=== PATIENT | male | born 2000 | race Caucasian/White ===

== ENCOUNTER 2024-07-11 12:01 | Emergency (ER) | payer OTHER, SELFPAY ==
[2024-07-11 12:15] VITALS: BP 139/83; PULSE 97; TEMP 36.8; O2SAT 98; BMI 35.6
--- NOTE | 2024-07-11 12:30 | ED_ITS ---
HPI HPI - General Adult General Chief complaint: Abdominal Pain Stated complaint: VOMITING, WEAKNESS Time Seen by Provider: 07/11/24 12:27 Source: patient Mode of arrival: walk-in History of Present Illness HPI narrative: 24-year-old male presents to the emergency department for nausea and vomiting and diarrhea. It began at 8:00 this morning. No known ill contacts. He has not had a fever. He is not complaining to me of abdominal pain. He believes he saw some blood in his emesis after he had vomited several times. Related Data Previous Rx's ?Medication ?Instructions ?Recorded ondansetron 4 mg disintegrating 4 mg PO Q6H PRN nausea and 07/11/24 tablet vomiting #20 tabs Allergies Allergy/AdvReac Type Severity Reaction Status Date / Time No Known Drug Allergies Allergy Verified 07/11/24 12:15 Opioid HPI Opioid Management Most Recent Opioid Data: No Data to Display Review of Systems ROS Narrative A ten point review of systems is negative except as noted above. PFSH PFSH Social History Little interest or pleasure in doing things: not at all Feeling down, depressed, or hopeless: not at all Exam Narrative Exam Narrative: Nurses note and vital signs reviewed and patient is not hypoxic. General: The patient appears in no apparent distress. Skin: Warm, dry, no pallor noted. There is no rash noted. Head: Normocephalic, atraumatic Eye: Normal conjunctiva, no drainage Ears, Nose, Mouth, and Throat: oral mucosa is moist. Nares patent. Cardiovascular: Regular Rate and Rhythm Respiratory: Patient is in no distress, no accessory muscle use, lungs are clear to auscultation, no wheezing, rales or rhonchi Back: non-tender GI: no tenderness to palpation, no masses appreciated. No rebound, guarding, or rigidity noted. Musculoskeletal: The patient has no evidence of calf tenderness, no pitting edema, symmetrical pulses noted bilaterally Neurological: A&O, normal speech Psychiatric: Cooperative Constitutional Vital Signs, click to edit/add: Last Vital Signs Temp 98.2 F 07/11/24 12:15 Pulse 86 07/11/24 13:55 Resp 20 07/11/24 13:55 BP 132/78 07/11/24 13:55 Pulse Ox 99 07/11/24 13:55 O2 Del Method Room Air 07/11/24 13:55 Course Vital Signs Vital signs: Vital Signs Temperature 98.2 F 07/11/24 12:15 Pulse Rate 97 H 07/11/24 12:15 Respiratory Rate 20 07/11/24 12:15 Blood Pressure 139/83 07/11/24 12:15 Pulse Oximetry 98 07/11/24 12:15 Temperature 98.2 F 07/11/24 12:15 Pulse Rate 86 07/11/24 13:55 Respiratory Rate 20 07/11/24 13:55 Blood Pressure 132/78 07/11/24 13:55 Pulse Oximetry 99 07/11/24 13:55 Oxygen Delivery Method Room Air 07/11/24 13:55 Medical Decision Making MDM Narrative Medical decision making narrative: Blood work is nonspecific. He is feeling improved after IV fluids and IV Zofran and he is discharged home. Treatment diagnosis and follow-up were discussed with the patient. Differential Diagnosis Differential Diagnosis: Gastroenteritis, dehydration, food poisoning Lab Data Lab results reviewed: Yes I reviewed the patient's lab results Labs: Lab Results 07/11/24 Range/Units 12:47 WBC 8.8 (4.0-11.0) 10^3/uL RBC 5.82 (4.70-6.10) 10^6/uL Hgb 16.6 (14.0-18.0) g/dL Hct 48.9 (42.0-54.0) % MCV 84.0 (80.0-94.0) fL MCH 28.5 (25.9-34.0) pg MCHC 33.9 (29.9-35.2) g/dL RDW 12.8 (11.0-15.0) % Plt Count 274 (150-450) 10^3/uL MPV 10.4 (9.5-13.5) fL Neut % (Auto) 71.6 (43.0-75.0) % Lymph % (Auto) 20.3 L (20.5-60.0) % Craven % (Auto) 6.9 (1.7-12.0) % Eos % (Auto) 0.2 L (0.9-7.0) % Baso % (Auto) 0.5 (0.2-2.0) % Neut # (Auto) 6.3 (1.4-6.5) 10^3/uL Lymph # (Auto) 1.8 (1.2-3.8) 10^3/uL Craven # (Auto) 0.6 (0.3-0.8) 10^3/uL Eos # (Auto) 0.0 (0.0-0.7) 10^3/uL Baso # (Auto) 0.0 (0.0-0.1) 10^3/uL Abs Immat Gran (auto) 0.04 H (0.00-0.03) 10^3/uL Imm/Tot Granulo (auto) 0.5 (0.0-0.5) % Sodium 140 (136-145) mmol/L Potassium 4.5 (3.5-5.1) mmol/L Chloride 105 (98-107) mmol/L Carbon Dioxide 28.2 (21.0-32.0) mmol/L Anion Gap 11.3 BUN 10.0 (7.0-18.0) mg/dL Creatinine 1.04 (0.70-1.30) mg/dL Est GFR ( Amer) >60 (>=60 mL/min/1.73m^2) Est GFR (Non-Af Amer) >60 (>=60 mL/min/1.73m^2) BUN/Creatinine Ratio 9.6 Glucose 104 (74-106) mg/dL Calcium 9.2 (8.5-10.1) mg/dL Discharge Plan Discharge Chief Complaint: Abdominal Pain Clinical Impression: Nausea & vomiting Patient Disposition: Home, Self-Care Time of Disposition Decision: 14:52 Condition: Good Mode of Transportation: Private Vehicle Prescriptions / Home Meds: New ondansetron 4 mg tablet,disintegrating 4 mg PO Q6H PRN (Reason: nausea and vomiting) Qty: 20 0RF Print Language: Turkmen Instructions: Acute Nausea and Vomiting (ED) Referrals: MEMO STOVALL [Primary Care Provider] - 1 week
[2024-07-11] MEDS: ONDANSETRON PF 4 MG/2 ML VIAL IV (12:54)
[2024-07-11] MEDS: 0.9 % SODIUM CHLORIDE 1,000 ML 1000 ML IV (12:54)
[2024-07-11 12:57] LABS: Basophils Percent Auto 0.5 % (0.2-2.0); Eosinophils Percent Auto 0.2 % (0.9-7.0); Hematocrit 48.9 % (42.0-54.0); Hemoglobin 16.6 g/dL (14.0-18.0); Immature Granulocytes Abs Auto 0.04 10^3/uL (0.00-0.03); Immature Granulocytes Pct Auto 0.5 % (0.0-0.5); Lymphocytes Absolute Auto 1.8 10^3/uL (1.2-3.8); Lymphocytes Percent Auto 20.3 % (20.5-60.0); Mean Corpuscular HGB Conc 33.9 g/dL (29.9-35.2); Mean Corpuscular Hemoglobin 28.5 pg (25.9-34.0); Mean Platelet Volume 10.4 fL (9.5-13.5); Monocytes Absolute Auto 0.6 10^3/uL (0.3-0.8); Monocytes Percent Auto 6.9 % (1.7-12.0); Neutrophils Absolute Auto 6.3 10^3/uL (1.4-6.5); Neutrophils Percent Auto 71.6 % (43.0-75.0); Platelet Count 274 10^3/uL (150-450); Red Blood Count 5.82 10^6/uL (4.70-6.10); Red Cell Distribution Width 12.8 % (11.0-15.0); White Blood Count 8.8 10^3/uL (4.0-11.0)
[2024-07-11 13:13] LABS: Anion Gap 11.3; BUN Creatinine Ratio 9.6; Calcium 9.2 mg/dL (8.5-10.1); Carbon Dioxide 28.2 mmol/L (21.0-32.0); Chloride 105 mmol/L (98-107); Estimated GFR (African America >60 (>=60 mL/min/1.73m^2); Estimated GFR (Non-African Ame >60 (>=60 mL/min/1.73m^2); Glucose 104 mg/dL (74-106); Potassium 4.5 mmol/L (3.5-5.1); Sodium 140 mmol/L (136-145)
[2024-07-11 13:55] VITALS: BP 132/78; PULSE 86; O2SAT 99
== END 2024-07-11 15:02 | disposition home or self-care (01) ==
PROVIDERS: Emergency Provider Emergency Medicine; PCP Nurse Practitioner Family
DX: R11.2 Nausea with vomiting, unspecified (principal)
CPT/HCPCS: 36415; 80048; 85025; 96361; 96374; 99284; J2405

== ENCOUNTER 2025-01-30 16:11 | Outpatient (OUT) | payer OTHER, SELFPAY ==
[2025-01-30 16:34] LABS: Hematocrit 44.6 % (42.0-54.0); Hemoglobin 15.6 g/dL (14.0-18.0); Immature Granulocytes Abs Auto 0.01 10^3/uL (0.00-0.03); Immature Granulocytes Pct Auto 0.1 % (0.0-0.5); Lymphocytes Absolute Auto 2.9 10^3/uL (1.2-3.8); Mean Corpuscular HGB Conc 35.0 g/dL (29.9-35.2); Mean Corpuscular Hemoglobin 29.4 pg (25.9-34.0); Mean Corpuscular Volume 84.0 fL (80.0-94.0); Platelet Count 251 10^3/uL (150-450); Red Blood Count 5.31 10^6/uL (4.70-6.10); White Blood Count 8.1 10^3/uL (4.0-11.0)
[2025-01-30 17:03] LABS: Alanine Aminotransferase 90 U/L (16-63); Albumin Globulin Ratio 1.2; Albumin Level 4.4 g/dL (3.4-5.0); Alkaline Phosphatase 73 U/L (46-116); Anion Gap 8.8; Aspartate Amino Transferase 31 U/L (15-37); Blood Urea Nitrogen 12.0 mg/dL (7.0-18.0); Calcium 9.4 mg/dL (8.5-10.1); Carbon Dioxide 31.4 mmol/L (21.0-32.0); Chloride 104 mmol/L (98-107); Cholesterol 181 mg/dL (<=200); Estimated GFR (African America >60 (>=60 mL/min/1.73m^2); Estimated GFR (Non-African Ame >60 (>=60 mL/min/1.73m^2); Free T3 3.95 pg/mL (2.18-3.98); Globulin 3.6 g/dL; Glucose 92 mg/dL (74-106); HDL Cholesterol 44 mg/dL (40-60); Potassium 4.2 mmol/L (3.5-5.1); Sodium 140 mmol/L (136-145); Thyroid Stimulating Hormone 1.760 uIU/mL (0.358-3.740); Total Protein 8.0 g/dL (6.4-8.2); Triglycerides 147 mg/dL (<=150); Uric Acid 6.0 mg/dL (3.5-7.2); VLDL CHOLESTEROL 29.4 mg/dL
== END 2025-01-30 16:12 | disposition home or self-care (01) ==
PROVIDERS: PCP Nurse Practitioner Family; Visit Provider Nurse Practitioner Family
DX: Z00.00 Encounter for general adult medical examination without abnormal findings (principal)
CPT/HCPCS: 36415; 80053; 80061; 83036; 83525; 84436; 84443; 84481; 84550; 85025

== ENCOUNTER 2025-02-01 15:46 | Outpatient (OUT) | payer OTHER, SELFPAY ==
--- OUTSIDE RECORDS SUMMARY | 2023-12-23 07:48 | XMS_ITS ---
Author Organization The [facility] in [place] Address [address] [place] [address] Care Team Providers Care Product Development Consultant Name Role Phone Sylvia Guadarrama Primary Care Provider SYLVIA GUADARRAMA Unavailable [phone] REASON FOR VISIT skin discoloration Encounters Encounter Location Date Provider Diagnosis [facility] [address] [place] [address] 12/23/2023 SYLVIA GUADARRAMA Plan Of Treatment No Information Progress Notes * Omar BARROSO ADOB:2000 (23 yo M)Acc No.[id number]:12/23/2023 Patient: Rosario Omar NASH :2000 A ge:23 Y S ex:Male Address:[address] [place] [phone] * true * Date: Generated for Printi ng/Fahawag/eTransmitting on: 0 02/01/2025 03:48 PM EDT
--- OUTSIDE RECORDS SUMMARY | 2025-01-30 11:30 | XMS_ITS ---
Author Organization The [facility] in [place] Address [address] [place] [address] Care Team Providers Care Railroad Track Inspector Name Role Phone Sylvia Guadarrama Primary Care Provider [phone] Allergies No Known Allergies REASON FOR VISIT Fatigue, Body Aches, Low Appetite Social History Tobacco Use: Social History Observation Description Date Details (start date - stop date) Never Smoker NA - NA Tobacco Use/Smoking Question Answer Notes Patient is a nonsmoker AUDIT-C (Standard) Question Answer Notes Did you have a drink containing alcohol in the p ast year? No Points 0 Interpretation Negative Problems Problem Type SNOMED Code ICD Code Onset Dates Problem Status W/U Status Risk Notes Problem Mild anxiety (08035516) Mild anxiety (F41.9) Active confirmed Vital Signs Blood pressure systolic 182 mm Hg 01/31/20 25 Blood pressure diastolic 108 mm Hg 025 Heart Rate 82 /min 01/30/2025 Height 75 in 01/30/2025 Weight 290 lbs 01/30/2025 BMI 36.24 kg/m2 01/30/2025 Oximetry 98 % 01/30/2025 160/98 BP recheck Procedures Procedure Date Ordered Date Performed Result Body Sit e Holter Monitor - 3 days up to 14 days 01/30/2025 N/A Encounters Encounter Location Date Provider Diagnosis [facility] [address] [place] [address] 01/30/2025 Sylvia Guadarrama Fatigue R53.83 ; Palpitations R00.2 ; Mild anxiety F41.9 and Wellness examination Z00.00 Assessments Encounter Date Diagnosis (ICD Code) Assessment Notes Treatment Notes Treatment Clinical Notes Section Notes 01/30/2025 Fatigue (ICD-10 - R53.83) check labs rest , push fluids covid test neg 01/30/2025 Palpitations (ICD-10 - R00.2) 01/30/2025 Mild anxiety (ICD-10 - F41.9) scored 5 on RAQUEL testing 01/30/2025 Wellness examination (ICD-10 - Z00.00) Plan Of Treatment Treatment Notes Assessment Notes Fatigue check labs rest , push fluids covid test neg Mild anxiety scored 5 on RAQUEL test ing Pending Test Test Name Order Date HEMOGLOBIN A1C (GLYCO) 01/30/2025 INSULIN, TOTAL 01/30/2025 LIPID PANEL (CHOL/TRIG/HDL/LDL) 01/31/20 25 URIC ACID 01/30/2025 THYROID PANEL (T4/TSH/FREE T3) Holter Monitor - 3 days up to 14 days PSA, SCREENING 01/30/2025 CMP (COMP MET CHARLES) w/eGFR CKD-EPI 2024 CBC WITH DIFF 01/30/2025 Next Appt Details Follow Up: prn, Reason: Progress Notes * Omar PEDROZA ADOB:2000 (25 yo M)Acc No.[id number]:01/30/2025 Progress Note Patient: Omar GRANDA Provider: Zulema Guadarrama ([facility]), INSPECTION MANAGER :2000 A ge:25 Y S ex:Male Date:01/30/2025 Address:[address] [place], [place] [id number] Check In:03:26 PM ESTCheck O ut:03:59 PM EST Subjective: * Chief Complaints: * 1 . Fatigue, Body Aches, Low Appetite. * HPI: G eneral: for a week tired, sleeping more, body aches some cramps and diarrhea feels like heart beats real fast and stops, cp for few seconds, has to catch breath, than gets better little lighteaded once 2-3 Stanleys of water a day 1 cup caffeine daily, a soda. * ROS: G eneral/Constitutional: Fatigue a dmits and sleeping more. A nxiety d oesnt feel anxious, RAQUEL screening says mild anxiety. D izziness o ne episode. F eeling Poorly?admits. F eeling Tired a dmits. F ever d enies. H eadache d enies. W eight loss d enies. O phthalmologic: Discharge d enies. E ye Pain d enies. I tching and redness d enies. E NT: Nasal discharge d enies. N yaw congestion d enies.?Sore throat d enies. C ardiovascular: Chest tightness/ heavy pressure d enies. R apid heart rate a dmits and irregular, palpitations at times. S welling of extremities d enies. C hest pain l eft chest and arm couple seconds when rhythm off. R espiratory: Productive cough d enies. C hest pain d enies. C ough d enies. S hortness of breath d enies. W heezing d enies. ? G astrointestinal: Abdominal pain d enies. C onstipation d enies. D ecreased appetite d enies. D iarrhea a dmits , cramping before. N ausea d enies. V omiting d enies. G enitourinary: Urinary incontinence d enies. P ainful urination d enies. M usculoskeletal: Back pain d enies. N luis a pain d enies. M uscle aches d enies. S kin: Rash d enies. S kin lesion(s) d enies. ? s ome numbness and tingling in hands , feet at times. * Active Problem List H61.23 Impacted cerumen, bi lateral Modified On:10/17/2022/U Status:confirmed R06.02 Shortness of breath Modified On:10/17/2022/U Status:confirmed Z20.828 Contact with and (liz spected) exposure to other viral communicable diseases Modified On:10/17/2022/U Status:confirmed R53.83 Fatigue Modified On:10/17/2022/U Status:confirmed K21.9 GERD (gastroesophage al reflux disease) Modified On:10/17/2022/U Status:confirmed M54.9 Back pain Modified On:10/17/2022/U Status:confirmed R19.7 Diarrhea Modified On:10/17/2022U Status:confirmed K52.9 Gastroenteritis Modified On:10/17/2022 Status:confirmed K63.3 Sigmoid colon ulcer Modified On:10/17/2022U Status:confirmed R05.8 Other cough Modified On:10/17/2022U Status:confirmed F41.9 Mild anxiety Modified On:01/30/2025 Status:confirmed * Medical History: B ack pain, Sigmoid colon ulcer, Impacted cerumen, bilateral, GERD (gastroesophageal reflux disease), Contact with and (suspected) exposure to other viral communicable diseases, Gastroenteritis, Fatigue, Other cough, Diarrhea, Shortness of breath. * Surgical History: D enies Past Surgical History. * Hospitalization/Major Diagno stic Procedure: D enies Past Hospitalization. * Family History: F ather: alive, diagnosed with Unspecified essential hypertension. M other: alive, crohns.?Brother(s): alive. S ister(s): alive. 1 brother(s) , 1 sister(s) - healthy. . * Social History: T obacco Use: T obacco Use/Smoking P atient is a n onsmoker D rug/Alcohol: A KAT-C (Standard) D id you have a drink containing alcohol in the past year? N o P oints 0 I nterpretation N egative * Medications: N one * Allergies: N .K.D.A. Objective: * Vitals: W t:290lbs, Ht: 75 in, BP:182/108mm Hg, HR:82/min, BMI:36.24Index, Oxygen sat %:98%, Ht-cm: 190.5 cm, Wt-k.54 kg. 160/98 BP recheck. * Examination: G eneral Examinations: GENERAL APPEARANCE: a lert and oriented, in no acute distress, obese. EYES: c onjunctiva normal, sclera non-icteric. NOSE: n ormal external appearance. LUNGS: c lear to auscultation bilaterally. CARDIO: r egular rate and rhythm, S1, S2 normal, no murmurs, no edema. ABDOMEN: s oft, nontender. MUSCULOSKELETAL: G ait and station normal. SKIN: w arm and dry. Assessment: * Assessment: 1. F atigue - R53.83 (Primary) 2 . P alpitations - R00.2 3 . M ild anxiety - F41.9 4 . W ellness examination - Z00.00 Plan: * Treatment: 2. P alpitations P rocedure: Holter Monitor - 3 days up to 14 days 3.?Mild anxiety? Notes: scored 5 on RAQUEL testing??4.?Wellness examination?LAB: HEMOGLOBIN A1C (GLYCO) ?LAB: INSULIN, TOTAL ?LAB: LIPID PANEL (CHOL/TRIG/HDL/LDL) ?LAB: URIC ACID ?LAB: THYROID PANEL (T4/TSH/FREE T3) ?LAB: PSA, SCREENING ?LAB: CMP (COMP MET CHARLES) w/eGFR CKD-EPI ?LAB: CBC WITH DIFF * Preventive Medicine: Screenings/Counseling: B KS ACTION PLAN Above Normal BMI Follow-up D ietary management education, guidance, and counseling * Follow Up: p rn * * Electronically signed by Bree Guadarrama , MEDICAL FEE CLERK, HADOOP ADMIN.INSPECTION [id number] on 01/31/2025 at 09:46 AM EDT Sign off status: Completed Visit Status: C HK (Check Out) true * Provider: Zulema Guadarrama (TTC), INSPECTION MANAGER Date: 01/30/2025 Generated for Janice chow/Radha/eTransmitting on: 02/01/2025 03:48 PM EDT History and Physical Notes * HPI (History of Present Illness) Category Sub-Category Detail Notes Category Not es General for a week tired, sleeping more, body aches some cramps and diarrhea feels like heart beats real fast and stops, cp for few seconds, has to catch breath, than gets better little lighteaded once 2-3 Stanleys of water a day 1 cup caffeine daily, a soda Examination Category Sub-Category Detail Notes Category Not es General Examinations GENERAL APPEARANCE: alert a nd oriented, in no acute distress, obese EYES: conjunctiva normal, sclera non-icteric EARS: NOSE: normal external appe arance THROAT: CARDIO: regular rate and rhy thm, S1, S2 normal, no murmurs, no edema LUNGS: clear to auscultatio n bilaterally ABDOMEN: soft, nontender SKIN: warm and dry BACK: MUSCULOSKELETAL: Gait and station nor mal LYMPH NODES:
--- OUTSIDE RECORDS SUMMARY | 2025-01-31 05:27 | XMS_ITS ---
Author Organization The [facility] in [place] Address [address] [place] [address] Care Team Providers Care Offset Printer Name Role Phone Sylvia Guadarrama Primary Care Provider REASON FOR VISIT labs Encounters Encounter Location Date Provider Diagnosis [facility] [address] [place] [address] 01/31/2025 Sylvia Guadarrama Elevated liver enzymes R74.8 Assessments Encounter Date Diagnosis (ICD Code) Assessment Notes Treatment Notes Treatment Clinical Notes Section Notes 01/31/2025 Elevated liver enzymes (ICD-10 - R74.8) Plan Of Treatment Pending Test Test Name Order Date COMPREHENSIVE METABOLIC PROFILE WITH GFR 01/31/2025 Progress Notes * Omar BARROSO ADOB:2000 (25 yo M)Acc No.[id number]:01/31/2025 Patient: Omar GRANDA :2000 A ge:25 Y S ex:Male Address:[address] [place] [phone] Subjective: * Chief Complaints: * L abs * Medical History: * Surgical History: * Hospitalization/Major Diagno stic Procedure: * Medications: Objective: * Vitals: * Physical Examination: Assessment: * Assessment: 1. E levated liver enzymes - R74.8 (Primary) Plan: * Treatment: * Procedure Codes: * true * Date: Generated for Printi ng/Faxing/eTransmitting on: 0 02/01/2025 03:48 PM EDT
--- OUTSIDE RECORDS SUMMARY | 2025-01-31 17:42 | XMS_ITS | Encounter Summary ---
Author Organization [facility] [employer] [facility] tem Address [id number] [address] [place] [address] Care Team Providers Care Marketing Professor Name Role Phone Sylvia Guadarrama ORDER EXPEDITER-DISTRIBUTION COLLECTION OPERATOR Primary Care Provider Reason for Visit * Reason Comments Chest Pain Pt stated he has R s ided chest pain, and R sides headache, and SOB. Pt stated he went to his family doctor because he wasn't feeling well. 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 * Attachments The following attachments cannot be sent through Care Everywhere. * Palpitations ??? ED discharge instructions (Russian) * Chest pain ??? Discharge instructions (Russian) * Shoulder pain ??? ED discharge instructions (Russian) documented in this encounter Medications at Time [...] from the original note were not included. [facility] [...] any smokingor drugs. 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 [address], [place] * X-ray shoulder right minimum 2 [...] 01/31/2025 7:03 PM us Keli Milian DO [facility] DIAGNOSTIC IMAGING ORDER MERVIN Final Result * [...] 01/31/2025 7:04 PM us Keli Milian DO [facility] DIAGNOSTIC IMAGING ORDER MERVIN Final Result * Troponin I, High Sensitivity 0 Hour (01/31/2025 5:53 PM EDT) [facility] TROPONIN I, HIGH SENSITIVITY <2 <21 ng/L 01/31/2025 6:31 PM EDT [facility] Blood Venous blood / Unknown Venipuncture / Unknown 01/31/2025 5:53 PM EDT 01/31/2025 5:57 PM EDT us Nay Hagen APRN-[facility] LAB BLOOD ORDERABLES Final Result Performing Organization Address City/[facility]/ZIP Co de Phone Number [address] [place] [address], [place] * Magnesium (01/31/2025 5:53 PM EDT) [facility] MAGNESIUM 2.2 1.8 - 2.6 mg/dL 01/31/2025 6:25 PM EDT [facility] Blood Venous blood / Unknown Venipuncture / Unknown 01/31/2025 5:53 PM EDT 01/31/2025 5:57 PM EDT us [facility]ay [facility]agen [facility] LAB BLOOD ORDERABLES Final Result Performing Organization Address [facility] Co de Phone Number [address] [place] [address], [place] * D-Dimer (01/31/2025 5:53 PM EDT) [facility] D DIMER <150 1 - 255 ug/mL 01/31/2025 6:21 PM EDT [facility] Comment:Results <255 ng/mL D DU: [...] 01/31/2025 5:57 PM EDT us Nay Hagen ORDER EXPEDITER-DISTRIBUTION COLLECTION OPERATOR LAB BLOOD ORDERABLES Final Result [address] [place] [address], [place] * APTT (01/31/2025 5:53 PM EDT) APTT 31 26 - 37 sec 01/31/2025 6:21 PM EDT [facility] Blood Venous blood / Unknown Venipuncture / Unknown 01/31/2025 5:53 PM EDT 01/31/2025 5:57 PM EDT us Nay Hagen ORDER EXPEDITER-DISTRIBUTION COLLECTION OPERATOR LAB BLOOD ORDERABLES Final Result Performing Organization Address [facility] Co de Phone Number [address] [place] [address], [place] * Protime & INR (01/31/2025 5:53 PM EDT) PROTIME 10.5 9.8 - 13.2 sec 01/31/2025 6:21 PM EDT [facility] INR 0.9 0.9 - 1.2 01/31/2025 6:21 PM EDT [facility] Blood Venous blood / Unknown Venipuncture / Unknown 01/31/2025 5:53 PM EDT 01/31/2025 5:57 PM EDT us Nay Hagen ORDER EXPEDITER-DISTRIBUTION COLLECTION OPERATOR LAB BLOOD ORDERABLES Final Result Performing Organization Address City/[facility]/ZIP Co de Phone Number [address] [place] [address], [place] * B-type natriuretic peptide (01/31/2025 5:53 PM EDT) BNP 9 <=100 pg/mL 01/31/2025 6:37 PM EDT [facility] Blood Venous blood / Unknown Venipuncture / Unknown 01/31/2025 5:53 PM EDT 01/31/2025 5:57 PM EDT us Nay Hagen ORDER EXPEDITER-DISTRIBUTION COLLECTION OPERATOR LAB BLOOD ORDERABLES Final Result [facility] [address] [place] [address], [place] * (ABNORMAL) Comprehensive metabolic panel (01/31/2025 5:53 PM EDT) [facility] SODIUM 136 134 - 146 mmol/L 01/31/2025 6:25 PM EDT [facility] POTASSIUM 3.6 3.5 - 5.0 mmol/L 01/31/2025 6:25 PM EDT [facility] CHLORIDE 102 98 - 109 mmol/L 01/31/2025 6:25 PM EDT [facility] CARBON DIOXIDE 25 22 - 32 mmol/L 01/31/2025 6:25 PM EDT [facility] ANION GAP 9 5 - 15 mmol/L 01/31/2025 6:25 PM EDT [facility] BLOOD UREA NITROGEN 10 5 - 23 mg/dL 01/31/2025 6:25 PM EDT [facility] CREATININE 0.87 0.70 - 1.20 mg/dL 01/31/2025 6:25 PM EDT [facility] Comment:METHOD TRACEABLE TO IDMS STANDARD GLUCOSE 105(H) 65 - 99 mg/dL 01/31/2025 6:25 PM EDT [facility] CALCIUM 9.6 8.5 - 10.5 mg/dL 01/31/2025 6:25 PM EDT [facility] TOTAL PROTEIN 8.4(H) 6.0 - 8.0 g/dL 01/31/2025 6:25 PM EDT [facility] ALBUMIN 4.8 3.2 - 5.3 g/dL 01/31/2025 6:25 PM EDT [facility] ALKALINE PHOSPHATASE 69 39 - 130 U/L 01/31/2025 6:25 PM EDT [facility] AST 40 <=41 U/L 01/31/2025 6:25 PM EDT [facility] ALT 74(H) <=40 U/L 01/31/2025 6:25 PM EDT [facility] BILIRUBIN,TOTAL 0.6 0.3 - 1.2 mg/dL 01/31/2025 6:25 PM EDT [facility] EGFR Non-Race Dependent >90 >=60 ml/min/1.7 3sq.m 01/31/2025 6:25 PM EDT [facility] Comment: eGFR not reported due to non-numeric value for Creatinine. Reported eGFR is based on the CKD-EPI 2020 equation that does not use a race coefficient. Blood Venous blood / Unknown Venipuncture / Unknown 01/31/2025 5:53 PM EDT 01/31/2025 5:57 PM EDT us Nay Hagen ORDER EXPEDITER-DISTRIBUTION COLLECTION OPERATOR LAB BLOOD ORDERABLES Final Result [facility] [address] [place] [address], * CBC auto differential (01/31/2025 5:53 PM EDT) WBC 10.1 4 - 11 x10E9/L 01/31/2025 6:08 PM EDT [facility] RBC Count 5.66 4.1 - 5.7 X10E12/L 01/31/2025 6:08 PM EDT [facility] Hemoglobin 16.4 13 - 17 g/dL 01/31/2025 6:08 PM EDT [facility] Hematocrit 46.6 39 - 50 % 01/31/2025 6:08 PM EDT [facility] MCV 82 80 - 100 fL 01/31/2025 6:08 PM EDT [facility] MCH 28.9 27 - 34 pg 01/31/2025 6:08 PM EDT [facility] MCHC 35.1 32 - 36 g/dL 01/31/2025 6:08 PM EDT [facility] RDW 13.6 11.5 - 15 % 01/31/2025 6:08 PM EDT [facility] Platelet Count 290 150 - 450 X10E9/L 01/31/2025 6:08 PM EDT [facility] MPV 9.0 7 - 12 fL 01/31/2025 6:08 PM EDT [facility] Neutrophils % 57.9 % 01/31/2025 6:08 PM EDT [facility] Lymphocytes % 31.8 % 01/31/2025 6:08 PM EDT [facility] Monocytes % 7.9 % 01/31/2025 6:08 PM EDT [facility] Eosinophils % 1.7 % 01/31/2025 6:08 PM EDT [facility] Basophils % 0.7 % 01/31/2025 6:08 PM EDT [facility] Neutrophils Absolute (A) 5.8 1.5 - 6.6 10*3/uL 01/31/2025 6:08 PM EDT [facility] Lymphocytes Absolute 3.2 1.0 - 3.5 10*3/uL 01/31/2025 6:08 PM EDT [facility] Monocytes Absolute 0.8 0.0 - 0.9 10*3/uL 01/31/2025 6:08 PM EDT [facility] Eosinophils Absolute 0.2 0.0 - 0.4 10*3/uL 01/31/2025 6:08 PM EDT [facility] Basophils Absolute 0.1 0.0 - 0.2 10*3/uL 01/31/2025 6:08 PM EDT [facility] Differential Type AUTOMATED DIFFERENTIAL 01/31/2025 6:08 PM EDT [facility] Blood Venous blood / Unknown Venipuncture / Unknown 01/31/2025 5:53 PM EDT 01/31/2025 5:57 PM EDT us Nay Hagen HERMELINDO LAB BLOOD ORDERABLES Final Result [facility] [address] [place] [address], [place] * ECG 12 lead (01/31/2025 5:25 PM EDT) 01/31/2025 5:25 PM EDT Nay Hagen CHAMP-DISTRIBUTION COLLECTION OPERATOR ECG ORDERABLES Final Resu lt TRACEMASTERVTESS documented [...] RN) documented in this encounter Care Teams Marketing Professor Relationship Specialty Start Date End Date Sylvia Guadarrama APRN-KARLIE [address] [place] [phone] PCP - General Family Medicine 09/02/20 documented as of this encounter
--- OUTSIDE RECORDS SUMMARY | 2025-02-01 15:49 | XMS_ITS | Clinical Summary ---
Author Organization [facility] [employer] [facility] tem Address [facility]-[id number] [address] [place] [address] Care Team Providers Care Flake Miller Helper Name Role Phone Sylvia Guadarrama SALES ENABLEMENT ANALYST-TRACK DRESSER Primary Care Provider Allergies No known active allergies Medications methocarbamoL (ROBAXIN) 500 mg tablet Take 500 mg by mouth in the morning and 500 mg at noon and 500 mg in the evening and 500 mg before bedtime. Active methylPREDNISol one (MEDROL, ESTEE,) 4 mg tablet follow package directions 21 tablet 2 Active acetaminophen (TYLENOL EXTRA STRENGTH) 500 mg tablet Take 2 tablets (1,000 mg total) by mouth every 6 (six) hours as needed for pain. 30 tablet 2 Active ibuprofen (MOTRIN) 800 mg tablet Take 1 tablet (800 mg total) by mouth every 8 (eight) hours as needed for pain. 30 tablet 5 Active Active Problems No known active problems Encounters Date Type Department Care Team Description 01/31/2025 5:42 PM EDT - 01/31/2025 8:03 PM EDT Emergency [facility] - Emergency [address] [place] [phone] Keli Milian, Chest pain, unspecified type (Primary Dx); Acute pain of right shoulder; Palpitations Discharge Disposition: Home 01/31/2025 Travel from Last 3 Months Social History Tobacco Use Types Packs/Day Years [...] on file Sexual Orientation Not on file Last Filed Vital Signs Vital Sign Reading [...] Mass Index 36.25 01/31/2025 5:27 PM EDT Plan of Treatment Health Maintenance Due Date Last Done Comments DTaP,Tdap and Td Vaccines (5 - Tdap) 2010 08/19/2000, 1999, 1999, Additional history exists Depression Screening 2011 Adult BMI Follow Up Plan 2017 Influenza Vaccine 02/27/2025 Adult BMI Screening 01/31/2026 01/31/2025 Tobacco Screening 01/31/2026 01/31/2025 Medical Devices Not on file Procedures Procedure Name Priority Date/Time Associated Diagnosis Comments TROP I, HIGH SENSITIVITY 1 HOUR STAT 01/31/2025 6:51 PM EDT XR SHOULDER RT MIN 2 VWS STAT 01/31/2025 6:44 PM EDT XR CHEST 1 VW STAT 01/31/2025 6:44 PM EDT TROPONIN I, HIGH SENSITIVITY 0 HOUR STAT 01/31/2025 5:53 PM EDT TROPONIN I, HIGH SENSITIVITY 0 HOUR STAT 01/31/2025 5:53 PM EDT MAGNESIUM STAT 01/31/2025 5:53 PM EDT D-DIMER STAT 01/31/2025 5:53 PM EDT APTT STAT 01/31/2025 5:53 PM EDT PROTIME & INR STAT 01/31/2025 5:53 PM EDT B-TYPE NATRIURETIC PEPTIDE STAT 01/31/2025 5:53 PM EDT COMPREHENSIVE METABOLIC PANEL STAT 01/31/2025 5:53 PM EDT CBC WITH AUTO DIFFERENTIAL STAT 01/31/2025 5:53 PM EDT ECG 12-LEAD STAT 01/31/2025 5:25 PM EDT from Last 3 Months Results * Troponin I, High Sensitivity 1 Hour (01/31/2025 6:51 PM EDT) TROPONIN I, HIGH SENSITIVITY <2 <21 ng/L 01/31/2025 7:42 PM EDT [facility] Blood Venous blood / Unknown Venipuncture / Unknown 01/31/2025 6:51 PM EDT 01/31/2025 7:08 PM EDT us Nay Hagen SALES ENABLEMENT ANALYST-TRACK DRESSER LAB BLOOD ORDERABLES Final Result [facility] [address] [place] [address], [place] * X-ray shoulder right minimum 2 [...] Jesse Menard MD on 01/31/2025 7:03 PM Keli Milian DO [facility] DIAGNOSTIC IMAGING ORDER MERVIN Final Result * [...] Jesse Menard MD on 01/31/2025 7:04 PM Keli Milian DO IMG DIAGNOSTIC IMAGING ORDER MERVIN Final Result * Troponin I, High Sensitivity 0 Hour (01/31/2025 5:53 PM EDT) TROPONIN I, HIGH SENSITIVITY <2 <21 ng/L 01/31/2025 6:31 PM EDT [facility] Blood Venous blood / Unknown Venipuncture / Unknown 01/31/2025 5:53 PM EDT 01/31/2025 5:57 PM EDT us Nay Hagen SALES ENABLEMENT ANALYST-TRACK DRESSER LAB BLOOD ORDERABLES Final Result [facility] [address] [facility] [place] [address], [place] * CBC auto differential (01/31/2025 5:53 PM EDT) WBC 10.1 4 - 11 x10E9/L 01/31/2025 6:08 PM EDT [facility] RBC Count 5.66 4.1 - 5.7 X10E12/L 01/31/2025 6:08 PM EDT [facility] Hemoglobin 16.4 13 - 17 g/dL 01/31/2025 6:08 PM EDT [facility] Hematocrit 46.6 39 - 50 % 01/31/2025 6:08 PM EDT [facility] MCV 82 80 - 100 fL 01/31/2025 6:08 PM EDT [facility] MCH 28.9 27 - 34 pg 01/31/2025 6:08 PM EDT [facility] MCHC 35.1 32 - 36 g/dL 01/31/2025 6:08 PM EDT [facility] RDW 13.6 11.5 - 15 % 01/31/2025 6:08 PM EDT [facility] Platelet Count 290 150 - 450 X10E9/L 01/31/2025 6:08 PM EDT [facility] MPV 9.0 7 - 12 fL 01/31/2025 6:08 PM EDT [facility] Neutrophils % 57.9 % 01/31/2025 6:08 PM EDT [facility] Lymphocytes % 31.8 % 01/31/2025 6:08 PM EDT [facility] Monocytes % 7.9 % 01/31/2025 6:08 PM EDT [facility] Eosinophils % 1.7 % 01/31/2025 6:08 PM EDT [facility] Basophils % 0.7 % 01/31/2025 6:08 PM EDT [facility] Neutrophils Absolute (A) 5.8 1.5 - 6.6 10*3/uL 01/31/2025 6:08 PM EDT [facility] Lymphocytes Absolute 3.2 1.0 - 3.5 10*3/uL 01/31/2025 6:08 PM EDT [facility] Monocytes Absolute 0.8 0.0 - 0.9 10*3/uL 01/31/2025 6:08 PM EDT [facility] Eosinophils Absolute 0.2 0.0 - 0.4 10*3/uL 01/31/2025 6:08 PM EDT [facility] Basophils Absolute 0.1 0.0 - 0.2 10*3/uL 01/31/2025 6:08 PM EDT [facility] Differential Type AUTOMATED DIFFERENTIAL 01/31/2025 6:08 PM EDT [facility] Blood Venous blood / Unknown Venipuncture / Unknown 01/31/2025 5:53 PM EDT 01/31/2025 5:57 PM EDT Nay Hagen SALES ENABLEMENT ANALYST-TRACK DRESSER LAB BLOOD ORDERABLES Final Result Performing Organization Address City/[facility]/ZIP Co de Phone Number [address] [place] [address], [place] * APTT (01/31/2025 5:53 PM EDT) APTT 31 26 - 37 sec 01/31/2025 6:21 PM EDT [facility] Blood Venous blood / Unknown Venipuncture / Unknown 01/31/2025 5:53 PM EDT 01/31/2025 5:57 PM EDT Nay Hagen SALES ENABLEMENT ANALYST-TRACK DRESSER LAB BLOOD ORDERABLES Final Result [address] [place] [address], [place] * Protime & INR (01/31/2025 5:53 PM EDT) PROTIME 10.5 9.8 - 13.2 sec 01/31/2025 6:21 PM EDT [facility] INR 0.9 0.9 - 1.2 01/31/2025 6:21 PM EDT [facility] Blood Venous blood / Unknown Venipuncture / Unknown 01/31/2025 5:53 PM EDT 01/31/2025 5:57 PM EDT us Nay Hagen SALES ENABLEMENT ANALYST-TRACK DRESSER LAB BLOOD ORDERABLES Final Result Performing Organization Address [facility] de Phone Number [address] [place] [address], [place] * D-Dimer (01/31/2025 5:53 PM EDT) D DIMER <150 1 - 255 ug/mL 01/31/2025 6:21 PM EDT [facility] Comment:Results <255 ng/mL D DU: The presensence [...] 01/31/2025 5:57 PM EDT us Nay Hagen APRN-TRACK DRESSER LAB BLOOD ORDERABLES Final Result Performing Organization Address [facility] de Phone Number [address] [place] [address], [place] * B-type natriuretic peptide (01/31/2025 5:53 PM EDT) BNP 9 <=100 pg/mL 01/31/2025 6:37 PM EDT [facility] Blood Venous blood / Unknown Venipuncture / Unknown 01/31/2025 5:53 PM EDT 01/31/2025 5:57 PM EDT us Tee Hieu SALES ENABLEMENT ANALYST-TRACK DRESSER LAB BLOOD ORDERABLES Final Result Performing Organization Address City/[facility] Co de Phone Number [address] [place] [address], [place] * Magnesium (01/31/2025 5:53 PM EDT) MAGNESIUM 2.2 1.8 - 2.6 mg/dL 01/31/2025 6:25 PM EDT [facility] Blood Venous blood / Unknown Venipuncture / Unknown 01/31/2025 5:53 PM EDT 01/31/2025 5:57 PM EDT us Nay Hagen SALES ENABLEMENT ANALYST-TRACK DRESSER LAB BLOOD ORDERABLES Final Result [address] [place] [address], [place] * (ABNORMAL) Comprehensive metabolic panel (01/31/2025 5:53 PM EDT) SODIUM 136 134 - 146 mmol/L 01/31/2025 6:25 PM EDT [facility] POTASSIUM 3.6 3.5 - 5.0 mmol/L 01/31/2025 6:25 PM EDT [facility] CHLORIDE 102 98 - 109 mmol/L 01/31/2025 6:25 PM EDT [facility] CARBON DIOXIDE 25 22 - 32 mmol/L 01/31/2025 6:25 PM EDT [facility] ANION GAP 9 5 - 15 mmol/L 01/31/2025 6:25 PM EDT [facility] BLOOD UREA NITROGEN 10 5 - 23 mg/dL 01/31/2025 6:25 PM EDT [facility] CREATININE 0.87 0.70 - 1.20 mg/dL 01/31/2025 6:25 PM EDT [facility] Comment:METHOD TRACEABLE TO IDMS STANDARD GLUCOSE 105(H) 65 - 99 mg/dL 01/31/2025 6:25 PM EDT [facility] CALCIUM 9.6 8.5 - 10.5 mg/dL 01/31/2025 6:25 PM EDT [facility] TOTAL PROTEIN 8.4(H) 6.0 - 8.0 g/dL 01/31/2025 6:25 PM EDT [facility] ALBUMIN 4.8 3.2 - 5.3 g/dL 01/31/2025 6:25 PM EDT [facility] ALKALINE PHOSPHATASE 69 39 - 130 U/L 01/31/2025 6:25 PM EDT [facility] AST 40 <=41 U/L 01/31/2025 6:25 PM EDT [facility] ALT 74(H) <=40 U/L 01/31/2025 6:25 PM EDT [facility] BILIRUBIN,TOTAL 0.6 0.3 - 1.2 mg/dL 01/31/2025 6:25 PM EDT [facility] EGFR Non-Race Dependent >90 >=60 ml/min/1.7 3sq.m 01/31/2025 6:25 PM EDT [facility] Comment: eGFR not reported due to non-numeric value for Creatinine. Reported eGFR is based on the CKD-EPI 2020 equation that does not use a race coefficient. Blood Venous blood / Unknown Venipuncture / Unknown 01/31/2025 5:53 PM EDT 01/31/2025 5:57 PM EDT Nay CASAREZ LAB BLOOD ORDERABLES Final Result Performing Organization Address City/[facility]/ZIP Co de Phone Number [facility] [address] [place] [address], * ECG 12 lead (01/31/2025 5:25 PM EDT) 01/31/2025 5:25 PM EDT Nay Hagen APRN-TRACK DRESSER ECG ORDERABLES Final Resu lt TRACEMASTERVUE from Last 3 Months Insurance [employer] Care Teams Flake Miller Helper Relationship Specialty Start Date End Date Sylvia Guadarrama APRN-KARLIE [address] [facility], [place] [phone] PCP - General Family Medicine 09/02/20
--- OUTSIDE RECORDS SUMMARY | 2025-02-01 15:49 | XMS_ITS | Patient Health Record ---
Author Organization [facility] in [place] Address [address] [place] [address] Care Team Providers Care Acid Filler Name Role Phone rBee Guadarramaela Primary Care Provider [phone] Allergies No Known Allergies Results Component Value Reference Range Notes CBC AUTO DIFF Reviewed date:07/12/2024 12:46:07 PM Interpretation: Performing Lab: Notes/Report: [facility] , White Blood Count 8.8 4.0-11.0 10 3/uL Red Blood Count 5.82 4.70-6.10 10 6/uL Hemoglobin 16.6 14.0-18.0 g/dL Hematocrit 48.9 42.0-54.0 % Mean Corpuscular Volume 84.0 80.0-94.0 fL Mean Corpuscular Hemoglobin 28.5 25.9-34.0 pg Mean Corpuscular HGB Conc 33.9 29.9-35.2 g/dL Red Cell Distribution Width 12.8 11.0-15.0 % Platelet Count 274 150-450 10 3/uL Mean Platelet Volume 10.4 9.5-13.5 fL Neutrophils Percent Auto 71.6 43.0-75.0 % Lymphocytes Percent Auto 20.3 20.5-60.0 % Monocytes Percent Auto 6.9 1.7-12.0 % Eosinophils Percent Auto 0.2 0.9-7.0 % Basophils Percent Auto 0.5 0.2-2.0 % Immature Granulocytes Pct Auto 0.5 0.0-0.5 % Neutrophils Absolute Auto 6.3 1.4-6.5 10 3/uL Lymphocytes Absolute Auto 1.8 1.2-3.8 10 3/uL Monocytes Absolute Auto 0.6 0.3-0.8 10 3/uL Eosinophils Absolute Auto 0.0 0.0-0.7 10 3/uL Basophils Absolute Auto 0.0 0.0-0.1 10 3/uL Immature Granulocytes Abs Auto 0.04 0.00-0.03 10 3/uL Performing Lab: see note - [facility] LB PROF CHEM 8 (BAS METB) Reviewed date:07/12/2024 12:46:07 PM Interpretation: Performing Lab: Notes/Report: [facility] , Sodium 140 136-145 mmol/L Potassium 4.5 3.5-5.1 mmol/L Chloride 105 98-107 mmol/L Carbon Dioxide 28.2 21.0-32.0 mmol/L Anion Gap 11.3 Glucose 104 74-106 mg/dL Blood Urea Nitrogen 10.0 7.0-18.0 mg/dL Creatinine 1.04 0.70-1.30 mg/dL Estimated GFR ( Carmen >60 >=60 mL/min/1.73m 2 Estimated GFR (Non- Ana Maria >60 >=60 mL/min/1.73m 2 BUN Creatinine Ratio 9.6 Calcium 9.2 8.5-10.1 mg/dL Performing Lab: see note - [facility] INSULIN (Not yet reviewed by provider) Interpretation: Performing Lab: Notes/Report: [facility] , Insulin 20.8 2.6-24.9 uIU/mL Performed at: - [facility] [address] [id number] Ship Loader: Dalton Batres PhD, Phone: [phone] Performing Lab: see note - [facility] LB CBC AUTO DIFF Reviewed date:01/31/2025 09:27:18 AM Interpretation: Performing Lab: Notes/Report: [facility] , White Blood Count 8.1 4.0-11.0 10 3/uL Red Blood Count 5.31 4.70-6.10 10 6/uL Hemoglobin 15.6 14.0-18.0 g/dL Hematocrit 44.6 42.0-54.0 % Mean Corpuscular Volume 84.0 80.0-94.0 fL Mean Corpuscular Hemoglobin 29.4 25.9-34.0 pg Mean Corpuscular HGB Conc 35.0 29.9-35.2 g/dL Red Cell Distribution Width 12.9 11.0-15.0 % Platelet Count 251 150-450 10 3/uL Mean Platelet Volume 10.5 9.5-13.5 fL Neutrophils Percent Auto 54.5 43.0-75.0 % Lymphocytes Percent Auto 36.3 20.5-60.0 % Monocytes Percent Auto 6.8 1.7-12.0 % Eosinophils Percent Auto 1.4 0.9-7.0 % Basophils Percent Auto 0.9 0.2-2.0 % Immature Granulocytes Pct Auto 0.1 0.0-0.5 % Neutrophils Absolute Auto 4.4 1.4-6.5 10 3/uL Lymphocytes Absolute Auto 2.9 1.2-3.8 10 3/uL Monocytes Absolute Auto 0.6 0.3-0.8 10 3/uL Eosinophils Absolute Auto 0.1 0.0-0.7 10 3/uL Basophils Absolute Auto 0.1 0.0-0.1 10 3/uL Immature Granulocytes Abs Auto 0.01 0.00-0.03 10 3/uL Performing Lab: see note ML - [facility] FREE T3 Reviewed date:01/31/2025 09:27:18 AM Interpretation: Performing Lab: Notes/Report: [facility] , Free T3 3.95 2.18-3.98 pg/mL Performing Lab: see note ML - [facility] GLYCOHEMOGLOBIN A1C Reviewed date:01/31/2025 09:27:18 AM Interpretation: Performing Lab: Notes/Report: [facility] , Glycohemoglobin A1C 5.0 4.5-6.2 % ADA RECOMMENDED LIMIT 4.0 - 6.0 ADA THERAPEUTIC TARGET < 7.0 ACTION SUGGESTED > 7.0 Estimated Average Glucose 97 Performing Lab: see note ML - [facility] LB LIPID PROFILE Reviewed date:01/31/2025 09:27:18 AM Interpretation: Performing Lab: Notes/Report: [facility] , Triglycerides 147 <=150 mg/dL Cholesterol 181 <=200 mg/dL HDL Cholesterol 44 40-60 mg/dL > or =60 mg/dl - LOW CARDIOVASCULAR RISK <40 mg/dl - HIGH CARDIOVASCULAR RISK LDL Cholesterol Calculated 107.6 <100 mg/dl OPTIMAL 100-129 mg/dl NEAR OR ABOVE OPTIMAL 130-159 mg/dl BORDERLINE HIGH 160-189 mg/dl HIGH >190 mg/dl VERY HIGH VLDL CHOLESTEROL 29.4 Chol HDL Ratio 4.1 3.3 - 4.4 LOW RISK 4.4 - 7.1 AVERAGE RISK 7.1 - 11.0 MODERATE RISK >11.0 HIGH RISK Performing Lab: see note - [facility] PROF 14(COMP METB) Reviewed date:01/31/2025 09:27:18 AM Interpretation: Performing Lab: Notes/Report: [facility] , Sodium 140 136-145 mmol/L Potassium 4.2 3.5-5.1 mmol/L Chloride 104 98-107 mmol/L Carbon Dioxide 31.4 21.0-32.0 mmol/L Anion Gap 8.8 Glucose 92 74-106 mg/dL Blood Urea Nitrogen 12.0 7.0-18.0 mg/dL Creatinine 1.00 0.70-1.30 mg/dL Estimated GFR ( Carmen >60 >=60 mL/min/1.73m 2 Estimated GFR (Non- Ana Maria >60 >=60 mL/min/1.73m 2 BUN Creatinine Ratio 12.0 Calcium 9.4 8.5-10.1 mg/dL Bilirubin Total 0.5 0.2-1.0 mg/dL Aspartate Amino Transferase 31 15-37 U/L Alanine Aminotransferase 90 16-63 U/L Alkaline Phosphatase 73 46-116 U/L Total Protein 8.0 6.4-8.2 g/dL Albumin Level 4.4 3.4-5.0 g/dL Globulin 3.6 Albumin Globulin Ratio 1.2 Performing Lab: see note ML - [facility] LB T4 Reviewed date:01/31/2025 09:27:18 AM Interpretation: Performing Lab: Notes/Report: [facility] , T4 Thyroxine 9.50 4.50-12.10 ug/dL Performing Lab: see note ML - [facility] LB TSH Reviewed date:01/31/2025 09:27:18 AM Interpretation: Performing Lab: Notes/Report: [facility] , Thyroid Stimulating Hormone 1.760 0.358-3.740 u IU/mL Performing Lab: see note ML - [facility] LB URIC ACID SERUM Reviewed date:01/31/2025 09:27:18 AM Interpretation: Performing Lab: Notes/Report: [facility] , Uric Acid 6.0 3.5-7.2 mg/dL Performing Lab: see note ML - [facility] LB Reason For Referral No Information Social History Tobacco Use: Social History Observation Description Date Details (start date - stop date) Never Smoker NA - NA Tobacco Use/Smoking Question Answer Notes Patient is a nonsmoker Alcohol Screen (Audit-C) Question Answer Notes Did you have a drink containing alcohol in the p ast year? No Points 0 Interpretation Negative AUDIT-C (Standard) Question Answer Notes Did you have a drink containing alcohol in the p ast year? No Points 0 Interpretation Negative Problems Problem Type SNOMED Code ICD Code Onset Dates Problem Status W/U Status Risk Notes Problem Impacted cerumen (82263606) Impacted cerumen, bilateral (H61.23) Active confirmed Problem Shortness of breath (819739869) Shortness of breath (R06.02) Active confirmed Problem Exposure to communicable disease (851593087) Contact with and (suspected) exposure to other viral communicable diseases (Z20.828) Active confirmed Problem Fatigue (74443224) Fatigue (R53.83) Active conf irmed Problem Gastroesophageal reflux disease (391041666) GERD (gastroesophageal reflux disease) (K21.9) Active confirmed Problem Back pain (312387490) Back pain (M54.9) Active confirmed Problem Diarrhea (02340510) Diarrhea (R19.7) Active con firmed Problem Gastroenteritis (59495648) Gastroenteritis (K52.9) Active confirmed Problem Mild anxiety (63700671) Mild anxiety (F41.9) Active confirmed Problem Sigmoid colon ulcer (073804) Sigmoid colon ulcer (K63.3) Active confirmed Problem Cough (finding) (75971882) Other cough (R05.8) Active confirmed Vital Signs Heart Rate 82 /min 01/30/2025 160/98 BP reche ck Oximetry 98 % 01/30/2025 160/98 BP reche ck Blood pressure diastolic 108 mm Hg 01/30/2025 160 /98 BP recheck Height 75 in 01/30/2025 160/98 BP reche ck Blood pressure systolic 182 mm Hg 01/30/2025 160/ 98 BP recheck Weight 290 lbs 01/30/2025 160/98 BP reche ck BMI 36.24 kg/m2 01/30/2025 160/98 BP reche ck Procedures Procedure Date Ordered Date Performed Result Body Sit e Holter Monitor - 3 days up to 14 days 01/30/2025 N/A Encounters Encounter Location Date Provider Diagnosis [facility] [address] [place] [address] 01/31/2025 Sylvia Chiara Elevated liver enzym es R74.8 [facility] [address] [place] [address] 01/30/2025 Sylvia Guadarrama Fatigue R53.83 ; Palpitations R00.2 ; Mild anxiety F41.9 and Wellness examination Z00.00 Assessments Encounter Date Diagnosis (ICD Code) Assessment Notes Treatment Notes Treatment Clinical Notes Section Notes 01/30/2025 Fatigue (ICD-10 - R53.83) check labs rest , push fluids covid test neg 01/30/2025 Palpitations (ICD-10 - R00.2) 01/31/2025 Elevated liver enzymes (ICD-10 - R74.8) 01/30/2025 Mild anxiety (ICD-10 - F41.9) scored 5 on RAQUEL testing 01/30/2025 Wellness examination (ICD-10 - Z00.00) Plan Of Treatment Pending Test Test Name Order Date HEMOGLOBIN A1C (GLYCO) 01/30/2025 INSULIN, TOTAL 01/30/2025 LIPID PANEL (CHOL/TRIG/HDL/LDL) 01/31/20 25 URIC ACID 01/30/2025 COMPREHENSIVE METABOLIC PROFILE WITH GFR 01/31/2025 INSULIN 01/30/2025 THYROID PANEL (T4/TSH/FREE T3) Holter Monitor - 3 days up to 14 days PSA, SCREENING 01/30/2025 CMP (COMP MET CHARLES) w/eGFR CKD-EPI 2024 CBC WITH DIFF 01/30/2025 Insurance Providers Payer Name Payer Address Payer Phone Subscriber Number Group Number Insured Name Patient Relationship to Insured Coverage Start Date Coverage End Date [employer] [address] [address] [place] [address] [id number] Dharmesh, Omar Self - patient is the insured Medical (General) History Medical History History ICD Code Back pain M54.9 Sigmoid colon ulcer K63.3 Impacted cerumen, bilateral H61.23 GERD (gastroesophageal reflux disease) K 21.9 Contact with and (suspected) exposure to other viral communicable diseases Z20.828 Gastroenteritis K52.9 Fatigue R53.83 Other cough R05.8 Diarrhea R19.7 Shortness of breath R06.02
--- OUTSIDE RECORDS SUMMARY | 2025-02-01 15:49 | XMS_ITS | Encounter Summary ---
Author Organization [employer] Address [id number] [address] [place] [address] Care Team Providers Care Press Supervisor Name Role Phone Sylvia Guadarrama APRN-KARLIE Primary Care Provider Encounter Details Date Type Department Care Team (Latest Contact Info) Description 01/31/2025 Travel Social History Tobacco Use Types Packs/Day Years [...] on file documented as of this encounter Plan of Treatment Not on file documented as of this encounter Visit Diagnoses Not on filedocumented in this encounter Care Teams Press Supervisor Relationship Specialty Start Date End Date Sylvia Guadarrama APRN-CNP [address] [facility], [place] [address] PCP - General Family Medicine 09/02/20 documented as of this encounter
== END 2025-02-01 15:47 | disposition home or self-care (01) ==
LOC: CARD 15:47
PROVIDERS: PCP Nurse Practitioner Family; Visit Provider Nurse Practitioner Family
DX: R00.2 Palpitations (principal)
CPT/HCPCS: 93242

== ENCOUNTER 2025-02-14 08:00 | Outpatient (OUT) | payer OTHER, SELFPAY ==
--- OUTSIDE RECORDS SUMMARY | 2023-12-23 07:48 | XMS_ITS ---
Author Organization The [facility] in [place] Address [address] [place] [address] Care Team Providers Care Siebel Administrator Name Role Phone Sylvia Guadarrama Primary Care Provider SYLVIA GUADARRAMA Unavailable [phone] REASON FOR VISIT skin discoloration Encounters Encounter Location Date Provider Diagnosis [facility] ([place], [place]) [address] [place] [address] 12/23/2023 SYLVIA GUADARRAMA Plan Of Treatment No Information Progress Notes * Omar BARROSO ADOB:2000 (23 yo M)Acc No.[id number]:12/23/2023 Patient: Rosario Omar NASH :2000 A ge:23 Y S ex:Male Address:[address] [place] [phone] * true * Date: Generated for Printi claudine/Fahawag/eTransmitting on: 0 02/14/2025 08:02 AM EDT
--- OUTSIDE RECORDS SUMMARY | 2025-01-30 11:30 | XMS_ITS ---
Author Organization The [facility] in [place] Address [address] [place] [address] Care Team Providers Care Tape Deck Installer Name Role Phone Sylvia Guadarrama Primary Care Provider Allergies No Known Allergies REASON FOR VISIT [...] W/U Status Risk Notes Problem Mild anxiety (12827427) Mild anxiety (F41.9) Active confirmed Vital Signs Weight 290 lbs 01/30/2025 Height 75 in 01/30/2025 Blood pressure systolic 182 mm Hg 01/31/20 25 Blood pressure diastolic 108 mm Hg 025 Heart Rate 82 /min 01/30/2025 BMI 36.24 kg/m2 01/30/2025 Oximetry 98 % 01/30/2025 160/98 BP recheck Procedures Procedure Date Ordered Date Performed Result Body Sit e Holter Monitor - 3 days up to 14 days 01/30/2025 N/A Encounters Encounter Location Date Provider Diagnosis [facility] [address] [place] [address] 01/30/2025 Sylvia Guadarrama Fatigue R53.83 ; Palpitations [...] * Omar PEDROZA ADOB:2000 (25 yo M)Acc No.[id number]:01/30/2025 Progress Note Patient: Omar GRANDA Provider: Zulema Guadarrama ([facility]), TECTONOPHYSICIST :2000 A ge:25 Y S ex:Male Date:01/30/2025 Address:[address] [place], [place] [phone] Check In:03:26 PM ESTCheck O ut:03:59 PM [...] WITH DIFF * Preventive Medicine: Screenings/Counseling: B NE ACTION PLAN Above Normal BMI Follow-up D ietary management education, guidance, and counseling * Follow Up: p rn * * Electronically signed by Bree Guadarrama , EXCAVATING SUPERVISOR, RECOVERER.[id number] on 01/31/2025 at 09:46 AM EDT Sign off status: Completed Visit Status: C HK (Check Out) true * Provider: Zulema Guadarrama ([facility]C), TECTONOPHYSICIST Date: 01/30/2025 Generated for Janice chow/Radha/eTransmitting on: 02/14/2025 08:02 AM EDT History and Physical Notes * HPI [...]
--- OUTSIDE RECORDS SUMMARY | 2025-01-31 05:27 | XMS_ITS ---
Author Organization The [facility] in [place] Address [address] [place] [address] Care Team Providers Care Signing Teacher Name Role Phone Sylvia Guadarrama Primary Care Provider REASON FOR VISIT labs Encounters Encounter Location Date Provider Diagnosis [facility] [address] [place] [address] 01/31/2025 Sylvia Guadarrama Elevated liver enzymes R74.8 Assessments Encounter Date Diagnosis (ICD Code) Assessment Notes Treatment Notes Treatment Clinical Notes Section Notes 01/31/2025 Elevated liver enzymes (ICD-10 - R74.8) Plan Of Treatment Pending Test Test Name Order Date COMPREHENSIVE METABOLIC PROFILE WITH GFR 01/31/2025 Progress Notes * Omar BARROSO ADOB:2000 (25 yo M)Acc No.[id number]:01/31/2025 Patient: Omar GRANDA :2000 A ge:25 Y S ex:Male Address:[address] [place] [phone] Subjective: * Chief Complaints: * L abs * Medical History: * Surgical History: * Hospitalization/Major Diagno stic Procedure: * Medications: Objective: * Vitals: * Physical Examination: Assessment: * Assessment: 1. E levated liver enzymes - R74.8 (Primary) Plan: * Treatment: * Procedure Codes: * true * Date: Generated for Printi ng/Faxing/eTransmitting on: 0 02/14/2025 08:02 AM EDT
--- OUTSIDE RECORDS SUMMARY | 2025-01-31 17:42 | XMS_ITS | Encounter Summary ---
Author Organization [facility] [email or web address] [facility] tem Address [id number] [address] [place] [address] Care Team Providers Care Payroll Master Name Role Phone Sylvia Guadarrama OUTPATIENT PHARMACY MANAGER-CIGARETTE CATCHER Primary Care Provider Reason for Visit * Reason Comments Chest Pain Pt stated he has R s ided chest pain, and R sides headache, and SOB. Pt stated he went to his family doctor because he wasn't feeling well. Encounter Details Date Type Department Care Team (Late st Contact Info) Description 01/31/2025 5:42 PM EDT - 01/31/2025 8:03 PM EDT Emergency [facility] - Emergency [address] [place] [phone] Keli Milian, DO [address] [place] [address] Chest pain, unspecified type (Primary Dx); Acute pain of right shoulder; Palpitations Discharge Disposition: Home Social History Tobacco Use Types Packs/Day Years Used Date Smoking Tobacco: Never Smokeless Tobacco: Never Alcohol Use Standard Drinks/Week Comments Never 0 (1 standard drink = 0.6 oz pur e alcohol) AUDIT-C Answer Date Recorded Q1: How often do you have a drink containing alc ohol? Never 09/02/2020 Average Number of Drinks Not on file 021 Frequency of Binge Drinking Not on file 12/2020 Childcare Answer Date Recorded Childcare Unknown 12/08/2018 Employment Answer Date Recorded Employment Unknown 12/08/2018 Hunger Screening Answer Date Recorded Within the past 12 months we worried whether our food would run out before we got money to buy more. Never True 01/31/2025 Within the past 12 months th e food we bought just didn't last and we didn't have money to get more. Never True 01/31/2025 Purpose - Life Answer Date Recorded Purpose and direction in life Unknown Sex and Gender Information Value Date Recorded Sex Assigned at Not on file Legal Sex Male 11:55 AM EDT Gender Identity Not on file Sexual Orientation Not on file documented as of this encounter Last Filed Vital Signs Vital Sign Reading Time Taken Comments Blood Pressure 111/68 01/31/2025 7:48 PM EDT Pulse 85 01/31/2025 7:48 PM EDT Temperature 36.7 C (98.1 F) 01/31/2025 5:27 PM EDT Respiratory Rate 24 01/31/2025 7:48 PM EDT Oxygen Saturation 98% 01/31/2025 7:48 PM EDT Inhaled Oxygen Concentration - - Weight 131.5 kg (290 lb) 01/31/2025 5:27 PM EDT Height 190.5 cm (6' 3 ) 01/31/2025 5:27 PM EDT Body Mass Index 36.25 01/31/2025 5:27 PM EDT documented in this encounter Discharge Instructions * Discharge Instructions* Keli Milian DO - 01/31/2025 7:47 PM EDT Motrin for the pain if needed. Keep your appointment to get the Holter monitor placed tomorrow. Thank you for allowing me to participate in your healthcare needs and for choosing us to provide your medical care today. Please return to the emergency department anytime for any complications or other concerns. Please call your doctor for outpatient follow up and recommendations. The emergency room cannot replace ongoing care, and it is important for your physician to evaluate you and monitor your health detention. * Attachments The following attachments cannot be sent through Care Everywhere. * Palpitations ??? ED discharge instructions (Northern Irish) * Chest pain ??? Discharge instructions (Northern Irish) * Shoulder pain ??? ED discharge instructions (Northern Irish) documented in this encounter Medications at Time of Discharge acetaminophen (TYLENOL EXTRA STRENGTH) 500 mg tablet Take 2 tablets (1,000 mg total) by mouth every 6 (six) hours as needed for pain. 30 tablet 11/20/2021 ibuprofen (MOTRIN) 800 mg tablet Take 1 tablet (800 mg total) by mouth every 8 (eight) hours as needed for pain. 30 tablet 01/31/2025 methocarbamoL (ROBAXIN) 500 mg tablet Take 500 mg by mouth in the morning and 500 mg at noon and 500 mg in the evening and 500 mg before bedtime. methylPREDNISolo ne (MEDROL, ESTEE,) 4 mg tablet follow package directions 21 tablet 11/20/2021 documented as of this encounter ED Notes * Keli Milian, DO - 01/31/2025 5:47 PM EDT Images from the original note were not included. [facility] Pt Name: Omar Barroso Birthdate: 2000 Chief Complaint: Chief Complaint Patient presents with Chest Pain Pt stated he has R sided chest pain, and R sides headache, and SOB. Pt stated he went to his familydoctor because he wasn't feeling well. History of Present Illness: Initial evaluation performed at 5:[address] Milian. Patient is a 25 y.o. male who presents to the ED accompanied by spouse for evaluation of chest pain. He notes that he has been experiencing heart racing, struggling to catch his breath, high blood pressure (200/101 and 180/92), and right arm pain. He notes that the chest problems have been happening intermittently for a week or two, and the arm pain started today. He states that the arm pain is located right on his shoulder and travels down his arm. He went to see his doctor yesterday and they said they wanted him to get a heart monitor. He also noted that he has been having right sided headaches for a couple months. He has a family history of low blood pressure on his moms side and high blood pressure on his dads side. He denies any recent travel or major surgeries. He denies any smokingor drugs. 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 No pertinent surgical history. Family History: History reviewed. No pertinent family history. Social History: Social History Socioeconomic History Marital status: Single Tobacco Use Smoking status: Never Smokeless tobacco: Never Substance and Sexual Activity Alcohol use: Never Drug use: Never Sexual activity: Defer Social Drivers of Health Food Insecurity: No Food Insecurity (01/31/2025) Hunger Screening Food Insecurity - Worry: Never True Food Insecurity - Inability: Never True Review of Systems: Review of Systems Physical Exam: ED Triage Vitals [01/31/25 1727] Temp Heart Rate Resp BP SpO2 36.7 ??C (98.1 ??F) 98 11 131/89 97 % Temp Source Heart Rate Source Patient Position BP Location FiO2 (%) Oral Monitor Sitting Left arm -- Vitals: 01/31/25 1727 01/31/25 1815 01/31/25 1845 01/31/25 1948 BP: 131/89 129/88 116/78 111/68 Temp: 36.7 ??C (98.1 ??F) TempSrc: Oral Pulse: 98 93 90 85 Resp: 11 22 24 SpO2: 97% 97% 97% 98% MAP (mmHg): 101 100 82 Height: 190.5 cm (6' 3 ) Weight: 131.5 kg (290 lb) 98 Physical Exam Vitals reviewed. HENT: Head: Normocephalic and atraumatic. Eyes: Conjunctiva/sclera: Conjunctivae normal. Cardiovascular: Rate and Rhythm: Normal rate. Pulmonary: Effort: Pulmonary effort is normal. Breath sounds: Normal breath sounds. Abdominal: General: There is no distension. Palpations: Abdomen is soft. Musculoskeletal: General: Normal range of motion. Right shoulder: Tenderness (at axillary, bicep attachment, to palpation) present. Cervical back: Normal range of motion and neck supple. Skin: General: Skin is warm and dry. Neurological: General: No focal deficit present. Mental Status: He is alert and oriented to person, place, and time. GCS: GCS eye subscore is 4. GCS verbal subscore is 5. GCS motor subscore is 6. Procedure: Procedures Re-evaluation: Stephanie Stanton (scribe), documented on behalf and in the presence of Dr. Milian. 7:[address] Milian re-evaluated pt and updated him on results. Pt is feeling fine. Discharge details and return precautions were discussed. Pt was understanding and agreeable to plan. Medical Decision Making Amount and/or Complexity of Data Reviewed Labs: ordered. Decision-making details documented in ED Course. Radiology: ordered and independent interpretation performed. Details: Imaging was independently viewed and is notable for no shoulder fracture, CXR normal and no sign of infiltrates. However, pending official radiologist read. ECG/medicine tests: ordered and independent interpretation performed. Details: ECG notable for sinus tachycardia to NSR Risk Prescription drug management. HEART Score History: Slightly suspicious ECG: Normal Age: <45 Risk Factors: 1-2 risk factors Troponin: Less than or equal to normal limit HEART Score: 1 ED Course: ED Course as of 02/01/256 ThuJan 31, 2025 185 BRN NATRIURETIC PEP: 9 [] 1854 Troponin I, High Sensitivity: <2 [] 1854 D-dimer: <150 [] 1854 Sodium: 136 [] 1854 Potassium: 3.6 [] 1854 BUN: 10 [] 1854 Creatinine: 0.87 [] 1854 Glucose(!): 105 [MC] 1854 Albumin: 4.8 [MC] 1854 ALT(!): 74 [MC] 1854 AST: 40 [] 1854 Alkaline phosphatase: 69 [] 1854 White Blood Cells: 10.1 [] 1854 Hemoglobin: 16.4 [] 1854 Platelets: 290 [] 1855 Inr: 0.9 [] ED Course User Index [MC] Keli Milian DO Clinical Impressions as of 02/01/25 0016 Chest pain, unspecified type Acute pain of right shoulder Palpitations . ED Disposition ED Disposition Discharge Date/Time ThuJan 31, 2025 7:48 PM Comment At the time of discharge, the plan has been discussed with the patient regarding the diagnosis and prognosis. All questions have been answered. Verbal discharge instructions were discussed with the patient. The patient has been advised to follow up w ith their Primary Care Provider within 1 week. The patient was also instructed to return to the ED if their symptoms change, worsen, new symptoms arise or if they have any additional concerns. Medications Prescribed this Visit Sig ibuprofen (MOTRIN) 800 mg tablet Take 1 tablet (800 mg total) by mouth every 8 (eight) hours as needed for pain. . Please note that portions of this note were completed with a voice recognition program. Efforts were made to edit the dictations but occasionally words are mis-transcribed. Stephanie Youssefpie 01/31/25 1753 Stephanie Mikaelpie 01/31/25 1759 Keli Milian DO 01/31/25 1801 Stephanie Mikaelpie 01/31/25 1926 Stephanie Mikaeljerie 01/31/25 1948 Keli Milian DO 02/01/25 0016 documented in this encounter Plan of Treatment Not on file documented as of this encounter Procedures Procedure Name Priority Date/Time Associated Diagnosis Comments TROP I, HIGH SENSITIVITY 1 HOUR STAT 01/31/2025 6:51 PM EDT XR SHOULDER RT MIN 2 VWS STAT 01/31/2025 6:44 PM EDT XR CHEST 1 VW STAT 01/31/2025 6:44 PM EDT TROPONIN I, HIGH SENSITIVITY 0 HOUR STAT 01/31/2025 5:53 PM EDT TROPONIN I, HIGH SENSITIVITY 0 HOUR STAT 01/31/2025 5:53 PM EDT CBC WITH AUTO DIFFERENTIAL STAT 01/31/2025 5:53 PM EDT APTT STAT 01/31/2025 5:53 PM EDT PROTIME & INR STAT 01/31/2025 5:53 PM EDT D-DIMER STAT 01/31/2025 5:53 PM EDT B-TYPE NATRIURETIC PEPTIDE STAT 01/31/2025 5:53 PM EDT MAGNESIUM STAT 01/31/2025 5:53 PM EDT COMPREHENSIVE METABOLIC PANEL STAT 01/31/2025 5:53 PM EDT ECG 12-LEAD STAT 01/31/2025 5:25 PM EDT documented in this encounter Results * Troponin I, High Sensitivity 1 Hour (01/31/2025 6:51 PM EDT) TROPONIN I, HIGH SENSITIVITY <2 <21 ng/L 01/31/2025 7:42 PM EDT [facility] Blood Venous blood / Unknown Venipuncture / Unknown 01/31/2025 6:51 PM EDT 01/31/2025 7:08 PM EDT us Nay Hagen OUTPATIENT PHARMACY MANAGER-CIGARETTE CATCHER LAB BLOOD ORDERABLES Final Result [facility] [address] [place] [address], [place] * X-ray shoulder right minimum 2 views (01/31/2025 6:44 PM EDT) Anatomical Region Laterality Modality MSK, Upper Extremities, Shoulder Right Computed Radiography 01/31/2025 7:02 PM EDT Narrative 01/31/2025 7:03 PM EDT HISTORY: A 25-year-old male with a history of the chest pain, hypertension and right shoulder pain. TECHNIQUE: Right shoulder: 3 views COMPARISON: No relevant prior studies are available for comparison. FINDINGS: There is no evidence of fracture, dislocation or acute bony pathology. Bones and joints are intact. No significant soft tissue abnormality is identified. IMPRESSION: * Normal plain film radiographs of the right shoulder. Finalized by Jesse Menard MD on 01/31/2025 7:03 PM Procedure Note Jesse Menard MD - 01/31/2025 HISTORY: A 25-year-old male with a history of the chest pain, hypertensionand right shoulder pain. TECHNIQUE: Right shoulder: 3 views COMPARISON: No relevant prior studies are available for comparison. FINDINGS: There is no evidence of fracture, dislocation or acute bonypathology. Bones and joints are intact. No significant soft tissue abnormality isidentified. IMPRESSION: * Normal plain film radiographs of the right shoulder. Finalized by Jesse Menard MD on 01/31/2025 7:03 PM us Keli Milian DO [facility] DIAGNOSTIC IMAGING ORDER MERVIN Final Result * X-ray chest 1 view (01/31/2025 6:44 PM EDT) Anatomical Region Laterality Modality Body, Chest N/A Computed Radiogr aphy 01/31/2025 7:03 PM EDT Narrative 01/31/2025 7:04 PM EDT HISTORY: A 25-year-old male with a history of the chest pain. EXAM/TECHNIQUE: CHEST: PA view COMPARISON: Comparison is made with prior chest examination of 01/18/2020. FINDINGS: Both lungs and costophrenic angles are clear. There is no evidence of pulmonary infiltrate or acute pulmonary pathology. The cardiac silhouette is within normal limits. The trachea is in midline. The mediastinum is otherwise unremarkable. The hemidiaphragms are normal in position. The bony rib cage is intact. IMPRESSION: * No evidence of pulmonary infiltrate, acute pulmonary pathology or significant interval change. Finalized by Jesse Menard MD on 01/31/2025 7:04 PM Procedure Note Jesse Menard MD - 01/31/2025 HISTORY: A 25-year-old male with a history of the chest pain. EXAM/TECHNIQUE: CHEST: PA view COMPARISON: Comparison is made with prior chest examination of01/18/2020. FINDINGS: Both lungs and costophrenic angles are clear. There is noevidence of pulmonary infiltrate or acute pulmonary pathology. The cardiac silhouette is within normal limits. The trachea is in midline.The mediastinum is otherwise unremarkable. The hemidiaphragms are normal in position. The bony rib cage is intact. IMPRESSION: * No evidence of pulmonary infiltrate, acute pulmonary pathology orsignificant interval change. Finalized by Jesse Menard MD on 01/31/2025 7:04 PM us Keli Milian DO [facility] DIAGNOSTIC IMAGING ORDER MERVIN Final Result * Troponin I, High Sensitivity 0 Hour (01/31/2025 5:53 PM EDT) [facility] TROPONIN I, HIGH SENSITIVITY <2 <21 ng/L 01/31/2025 6:31 PM EDT [facility] Blood Venous blood / Unknown Venipuncture / Unknown 01/31/2025 5:53 PM EDT 01/31/2025 5:57 PM EDT us Nay Hagen APRN-[facility] LAB BLOOD ORDERABLES Final Result Performing Organization Address City/[facility]/ZIP Co de Phone Number [address] [place] [address], [place] * Magnesium (01/31/2025 5:53 PM EDT) [facility] MAGNESIUM 2.2 1.8 - 2.6 mg/dL 01/31/2025 6:25 PM EDT [facility] Blood Venous blood / Unknown Venipuncture / Unknown 01/31/2025 5:53 PM EDT 01/31/2025 5:57 PM EDT [facility] Final Result Performing Organization Address [facility] Co de Phone Number [address] [place] [address], [place] * D-Dimer (01/31/2025 5:53 PM EDT) [facility] D DIMER <150 1 - 255 ug/mL 01/31/2025 6:21 PM EDT [facility] Comment:Results <255 ng/mL D DU: The presensence of a VTE can safely be excluded with a negative D-Dimer result and Wells score. A negative result doesn't exclude the possibility of DIC. The test should be repeated along with other diagnostic tests if the patient's symptoms persist or worsen. Blood Venous blood / Unknown Venipuncture / Unknown 01/31/2025 5:53 PM EDT 01/31/2025 5:57 PM EDT us Nay Hagen OUTPATIENT PHARMACY MANAGER-CIGARETTE CATCHER LAB BLOOD ORDERABLES Final Result [address] [place] [address], [place] * APTT (01/31/2025 5:53 PM EDT) APTT 31 26 - 37 sec 01/31/2025 6:21 PM EDT [facility] Blood Venous blood / Unknown Venipuncture / Unknown 01/31/2025 5:53 PM EDT 01/31/2025 5:57 PM EDT us aNy Hagen OUTPATIENT PHARMACY MANAGER-CIGARETTE CATCHER LAB BLOOD ORDERABLES Final Result Performing Organization Address [facility] Co de Phone Number [address] [place] [address], [place] * Protime & INR (01/31/2025 5:53 PM EDT) PROTIME 10.5 9.8 - 13.2 sec 01/31/2025 6:21 PM EDT [facility] INR 0.9 0.9 - 1.2 01/31/2025 6:21 PM EDT [facility] Blood Venous blood / Unknown Venipuncture / Unknown 01/31/2025 5:53 PM EDT 01/31/2025 5:57 PM EDT us Nay Hagen OUTPATIENT PHARMACY MANAGER-CIGARETTE CATCHER LAB BLOOD ORDERABLES Final Result Performing Organization Address City/[facility]/ZIP Co de Phone Number [address] [place] [address], [place] * B-type natriuretic peptide (01/31/2025 5:53 PM EDT) BNP 9 <=100 pg/mL 01/31/2025 6:37 PM EDT [facility] Blood Venous blood / Unknown Venipuncture / Unknown 01/31/2025 5:53 PM EDT 01/31/2025 5:57 PM EDT us Nay Hagen OUTPATIENT PHARMACY MANAGER-CIGARETTE CATCHER LAB BLOOD ORDERABLES Final Result [facility] [address] [place] [address], [place] * (ABNORMAL) Comprehensive metabolic panel (01/31/2025 5:53 PM EDT) [facility] SODIUM 136 134 - 146 mmol/L 01/31/2025 6:25 PM EDT [facility] POTASSIUM 3.6 3.5 - 5.0 mmol/L 01/31/2025 6:25 PM EDT [facility] CHLORIDE 102 98 - 109 mmol/L 01/31/2025 6:25 PM EDT [facility] CARBON DIOXIDE 25 22 - 32 mmol/L 01/31/2025 6:25 PM EDT [facility] ANION GAP 9 5 - 15 mmol/L 01/31/2025 6:25 PM EDT [facility] BLOOD UREA NITROGEN 10 5 - 23 mg/dL 01/31/2025 6:25 PM EDT [facility] CREATININE 0.87 0.70 - 1.20 mg/dL 01/31/2025 6:25 PM EDT [facility] Comment:METHOD TRACEABLE TO IDMS STANDARD GLUCOSE 105(H) 65 - 99 mg/dL 01/31/2025 6:25 PM EDT [facility] CALCIUM 9.6 8.5 - 10.5 mg/dL 01/31/2025 6:25 PM EDT [facility] TOTAL PROTEIN 8.4(H) 6.0 - 8.0 g/dL 01/31/2025 6:25 PM EDT [facility] ALBUMIN 4.8 3.2 - 5.3 g/dL 01/31/2025 6:25 PM EDT [facility] ALKALINE PHOSPHATASE 69 39 - 130 U/L 01/31/2025 6:25 PM EDT [facility] AST 40 <=41 U/L 01/31/2025 6:25 PM EDT [facility] ALT 74(H) <=40 U/L 01/31/2025 6:25 PM EDT [facility] BILIRUBIN,TOTAL 0.6 0.3 - 1.2 mg/dL 01/31/2025 6:25 PM EDT [facility] EGFR Non-Race Dependent >90 >=60 ml/min/1.7 3sq.m 01/31/2025 6:25 PM EDT [facility] Comment: eGFR not reported due to non-numeric value for Creatinine. Reported eGFR is based on the CKD-EPI 2020 equation that does not use a race coefficient. Blood Venous blood / Unknown Venipuncture / Unknown 01/31/2025 5:53 PM EDT 01/31/2025 5:57 PM EDT us Nay Hagen OUTPATIENT PHARMACY MANAGER-CIGARETTE CATCHER LAB BLOOD ORDERABLES Final Result [facility] [address] [place] [address], * CBC auto differential (01/31/2025 5:53 PM EDT) WBC 10.1 4 - 11 x10E9/L 01/31/2025 6:08 PM EDT [facility] RBC Count 5.66 4.1 - 5.7 X10E12/L 01/31/2025 6:08 PM EDT [facility] Hemoglobin 16.4 13 - 17 g/dL 01/31/2025 6:08 PM EDT [facility] Hematocrit 46.6 39 - 50 % 01/31/2025 6:08 PM EDT [facility] MCV 82 80 - 100 fL 01/31/2025 6:08 PM EDT [facility] MCH 28.9 27 - 34 pg 01/31/2025 6:08 PM EDT [facility] MCHC 35.1 32 - 36 g/dL 01/31/2025 6:08 PM EDT [facility] RDW 13.6 11.5 - 15 % 01/31/2025 6:08 PM EDT [facility] Platelet Count 290 150 - 450 X10E9/L 01/31/2025 6:08 PM EDT [facility] MPV 9.0 7 - 12 fL 01/31/2025 6:08 PM EDT [facility] Neutrophils % 57.9 % 01/31/2025 6:08 PM EDT [facility] Lymphocytes % 31.8 % 01/31/2025 6:08 PM EDT [facility] Monocytes % 7.9 % 01/31/2025 6:08 PM EDT [facility] Eosinophils % 1.7 % 01/31/2025 6:08 PM EDT [facility] Basophils % 0.7 % 01/31/2025 6:08 PM EDT [facility] Neutrophils Absolute (A) 5.8 1.5 - 6.6 10*3/uL 01/31/2025 6:08 PM EDT [facility] Lymphocytes Absolute 3.2 1.0 - 3.5 10*3/uL 01/31/2025 6:08 PM EDT [facility] Monocytes Absolute 0.8 0.0 - 0.9 10*3/uL 01/31/2025 6:08 PM EDT [facility] Eosinophils Absolute 0.2 0.0 - 0.4 10*3/uL 01/31/2025 6:08 PM EDT [facility] Basophils Absolute 0.1 0.0 - 0.2 10*3/uL 01/31/2025 6:08 PM EDT [facility] Differential Type AUTOMATED DIFFERENTIAL 01/31/2025 6:08 PM EDT [facility] Blood Venous blood / Unknown Venipuncture / Unknown 01/31/2025 5:53 PM EDT 01/31/2025 5:57 PM EDT us Nay Hagen HERMELINDO LAB BLOOD ORDERABLES Final Result [facility] [address] [place] [address], [place] * ECG 12 lead (01/31/2025 5:25 PM EDT) 01/31/2025 5:25 PM EDT Nay Hagen CHAMP-CIGARETTE CATCHER ECG ORDERABLES Final Resu lt TRACEMASTERVTESS documented in this encounter Visit Diagnoses Diagnosis Chest pain, unspecified type- Primary Acute pain of right shoulder Palpitations documented in this encounter Administered Medications Inactive Administered Medications - up to 3 most recent administrations Medication Order MAR Action Action Date Dose Rate Site ketorolac (TORADOL) injection 60 mg 60 mg, intramuscular, Once, On Thu01/31/25 at 1820, For 1 dose, Look-alike/sound-alike medication - verify indication for use. Duration of therapy is not to exceed 5 days. Maximum recommended dose + 120mg/24 hours. Given 01/31/2025 6:29 PM EDT 60 mg Left Ventrogluteal documented in this encounter Active and Recently Administered Medications Times are shown in EDT. Scheduled Medication Order 01/29/2025 01/30/2025 01/31/2025 ketorolac (TORADOL) injection 60 mg (COMPLETED) 60 mg, intramuscular, Once, On Thu01/31/25 at 1820, For 1 dose, Look-alike/sound-alike medication - verify indication for use. Duration of therapy is not to exceed 5 days. Maximum recommended dose + 120mg/24 hours. 1829 (Given - Provid er: Elizabeth Guerra RN) documented in this encounter Care Teams Payroll Master Relationship Specialty Start Date End Date Sylvia Guadarrama APRN-[facility] [address] [place] [phone] PCP - General Family Medicine 09/02/20 documented as of this encounter
--- OUTSIDE RECORDS SUMMARY | 2025-02-14 08:02 | XMS_ITS | Clinical Summary ---
Author Organization [facility] Address [address] [place] [address] Phone Care Team Providers Care Catalog Specialist Name Role Phone Unavailable Primary Care Provider Unavailabl e Social History Tobacco Use Types Packs/Day Years Used Date Smoking Tobacco: Never Assessed Sex and Gender Information Value Date Recorded Sex Assigned at Not on file Legal Sex Male 11:21 AM EDT Gender Identity Not on file Sexual Orientation Not on file Plan of Treatment Upcoming Encounters Date Type Department Care Team (Late st Contact Info) Description 03/23/2025 10:45 AM EDT Consult Ramin Pineda [address] [facility] [address] [place] [address] Sujata Hi MD [address] [place], [place] [id number] Health Maintenance Due Date Last Done Comments HIV Screening 1999 Lipid Panel 1999 Yearly Adult Physical 1999 MMR Vaccines (1 of 1 - Stand windy series) 01/15/2000 HPV Vaccines (1 - Male 3-dos e series) 2014 Hepatitis C Screening 2017 Hepatitis B Vaccines (1 of 3 - 19+ 3-dose series) 2018 DTaP/Tdap/Td Vaccines (1 - Tdap) 2021 COVID-19 Vaccine ( - 2023-2 5 season) 2024 Influenza Vaccine (#1) 2025 Zoster Vaccines (1 of 2) 2049 HIB Vaccines Aged Out No longer eligi ble based on patient's age to complete this topic Hepatitis A Vaccines Aged Out No long er eligible based on patient's age to complete this topic IPV Vaccines Aged Out No longer eligi ble based on patient's age to complete this topic Meningococcal Vaccine Aged Out No tori viviana eligible based on patient's age to complete this topic Pneumococcal Vaccine: Pediat rics and At-Risk Adult Patients Aged Out No longer risa gible based on patient's age to complete this topic Rotavirus Vaccines Aged Out No longer eligible based on patient's age to complete this topic
--- OUTSIDE RECORDS SUMMARY | 2025-02-14 08:02 | XMS_ITS | Patient Health Record ---
Author Organization [facility] in [place] Address [address] [place] [address] Care Team Providers Care Oxyacetylene Torch Operator Name Role Phone Sylvia Guadarrama Primary Care Provider [phone] Allergies No Known Allergies Results Component Value Reference Range Notes CBC AUTO DIFF Reviewed date:01/31/2025 09:27:18 AM Interpretation: Performing Lab: Notes/Report: [facility] , White Blood Count 8.1 4.0-11.0 [...] 3/uL Performing Lab: see note ML - [facility] LB CBC AUTO DIFF Reviewed date:07/12/2024 12:46:07 PM Interpretation: Performing Lab: Notes/Report: [facility] , White Blood Count 8.8 4.0-11.0 10 [...] 3/uL Performing Lab: see note ML - [facility] LB URIC ACID SERUM Reviewed date:01/31/2025 09:27:18 AM Interpretation: Performing Lab: Notes/Report: [facility] , Uric Acid 6.0 3.5-7.2 mg/dL Performing Lab: see note ML - [facility] LB TSH Reviewed date:01/31/2025 09:27:18 AM Interpretation: Performing Lab: Notes/Report: [facility] , Thyroid Stimulating Hormone 1.760 0.358-3.740 u IU/mL Performing Lab: see note ML - [facility] LB T4 Reviewed date:01/31/2025 09:27:18 AM Interpretation: Performing Lab: Notes/Report: [facility] , T4 Thyroxine 9.50 4.50-12.10 ug/dL Performing Lab: see note ML - [facility] LB LIPID PROFILE Reviewed date:01/31/2025 09:27:18 AM Interpretation: Performing Lab: Notes/Report: [facility] , Triglycerides 147 <=150 mg/dL Cholesterol 181 <=200 mg/dL HDL Cholesterol 44 40-60 mg/dL > or =60 mg/dl - LOW CARDIOVASCULAR RISK <40 mg/dl - HIGH CARDIOVASCULAR RISK LDL Cholesterol Calculated 107.6 <100 mg/dl OPTIMAL 130-159 mg/dl BORDERLINE HIGH 160-189 mg/dl HIGH >190 mg/dl VERY HIGH 100-129 mg/dl NEAR OR ABOVE OPTIMAL VLDL CHOLESTEROL 29.4 Chol HDL Ratio 4.1 3.3 - 4.4 LOW RISK 4.4 - 7.1 AVERAGE RISK 7.1 - 11.0 MODERATE RISK >11.0 HIGH RISK Performing Lab: see note ML - [facility] LB INSULIN Reviewed date:02/02/2025 12:16:36 PM Interpretation: Performing Lab: Notes/Report: [facility] , Insulin 20.8 2.6-24.9 uIU/mL Performed at: - [facility] Co[employer]ate: Dalton Batres PhD, Phone: [phone] [address] [place], [place] [id number] Performing Lab: see note - [facility] LB FREE T3 Reviewed date:01/31/2025 09:27:18 AM Interpretation: Performing Lab: Notes/Report: [facility] , Free T3 3.95 2.18-3.98 pg/mL Performing Lab: see note ML - [facility] LB PROF CHEM 8 (BAS METB) Reviewed date:07/12/2024 12:46:07 PM Interpretation: Performing Lab: Notes/Report: [facility] , Sodium 140 136-145 mmol/L Potassium 4.5 [...] 9.2 8.5-10.1 mg/dL Performing Lab: see note ML - [facility] LB PROF 14(COMP METB) Reviewed date:01/31/2025 09:27:18 AM Interpretation: Performing Lab: Notes/Report: [facility] , Sodium 140 136-145 mmol/L Potassium 4.2 [...] 1.2 Performing Lab: see note ML - [facility] LB GLYCOHEMOGLOBIN A1C Reviewed date:01/31/2025 09:27:18 AM Interpretation: Performing Lab: Notes/Report: [facility] , Glycohemoglobin A1C 5.0 4.5-6.2 % ACTION SUGGESTED > 7.0 ADA RECOMMENDED LIMIT 4.0 - 6.0 ADA THERAPEUTIC TARGET < 7.0 Estimated Average Glucose 97 Performing Lab: see note ML - [facility] LB Reason For Referral No Information Social [...] W/U Status Risk Notes Problem Impacted cerumen (03176781) Impacted cerumen, bilateral (H61.23) Active confirmed Problem Shortness of breath (062384000) Shortness of breath (R06.02) Active confirmed Problem Exposure to communicable disease (556302968) Contact with and (suspected) exposure to other viral communicable diseases (Z20.828) Active confirmed Problem Fatigue (94720914) Fatigue (R53.83) Active conf irmed Problem Gastroesophageal reflux disease (294422024) GERD (gastroesophageal reflux disease) (K21.9) Active confirmed Problem Back pain (728852419) Back pain (M54.9) Active confirmed Problem Diarrhea (76012417) Diarrhea (R19.7) Active con firmed Problem Gastroenteritis (36904613) Gastroenteritis (K52.9) Active confirmed Problem Mild anxiety (28417027) Mild anxiety (F41.9) Active confirmed Problem Sigmoid colon ulcer (474804) Sigmoid colon ulcer (K63.3) Active confirmed Problem Cough (finding) (48517389) Other cough (R05.8) Active confirmed Vital Signs [...] N/A Encounters Encounter Location Date Provider Diagnosis [facility] [address] [place] [address] 01/30/2025 Sylvia Guadarrama Fatigue R53.83 ; Palpitations R00.2 ; Mild anxiety F41.9 and Wellness examination Z00.00 [facility] [address] [place] [address] 01/31/2025 Sylvia Chiara Elevated liver enzym es R74.8 Assessments Encounter Date Diagnosis (ICD Code) Assessment Notes Treatment Notes Treatment Clinical Notes Section Notes 01/30/2025 Palpitations (ICD-10 - R00.2) 01/30/2025 Fatigue (ICD-10 - R53.83) check labs rest , push fluids covid test neg 01/31/2025 Elevated liver enzymes (ICD-10 - R74.8) 01/30/2025 Mild anxiety (ICD-10 - F41.9) scored 5 on RAQUEL testing 01/30/2025 Wellness examination (ICD-10 - Z00.00) Plan Of Treatment Pending Test Test Name Order Date HEMOGLOBIN A1C (GLYCO) 01/30/2025 INSULIN, TOTAL 01/30/2025 LIPID PANEL (CHOL/TRIG/HDL/LDL) 01/31/20 25 URIC ACID 01/30/2025 COMPREHENSIVE METABOLIC PROFILE WITH GFR 01/31/2025 THYROID PANEL (T4/TSH/FREE T3) Holter Monitor - 3 days up to 14 days PSA, SCREENING 01/30/2025 CMP (COMP MET CHARLES) w/eGFR CKD-EPI 2024 CBC WITH DIFF 01/30/2025 Insurance Providers Payer Name Payer Address Payer Phone Subscriber Number Group Number Insured Name Patient Relationship to Insured Coverage Start Date Coverage End Date [employer] [address] [address] [place] [address] [id number] Dharmesh, Omar Self - patient is the [...]
--- OUTSIDE RECORDS SUMMARY | 2025-02-14 08:03 | XMS_ITS | Clinical Summary ---
Author Organization [facility] [employer] [facility] tem Address [facility] [id number] [address] [place] [address] Care Team Providers Care Senior Revenue Accountant Name Role Phone Sylvia Guadarrama MOTOR TRANSPORT INSPECTOR-TERRAZZO TILE MAKER Primary Care Provider Allergies No known active [...] EDT - 01/31/2025 8:03 PM EDT Emergency [facility] - Emergency [address] [place] [address] Keli Milian, Chest pain, unspecified type (Primary [...] <2 <21 ng/L 01/31/2025 7:42 PM EDT [facility] Blood Venous blood / Unknown Venipuncture / Unknown 01/31/2025 6:51 PM EDT 01/31/2025 7:08 PM EDT us Nay Hagen MOTOR TRANSPORT INSPECTOR-TERRAZZO TILE MAKER LAB BLOOD ORDERABLES Final Result [facility] [address] [place] [address], [place] * X-ray shoulder right minimum 2 [...] on 01/31/2025 7:03 PM Keli Milian DO [facility] DIAGNOSTIC IMAGING ORDER MERVIN Final Result * [...] <2 <21 ng/L 01/31/2025 6:31 PM EDT [facility] Blood Venous blood / Unknown Venipuncture / Unknown 01/31/2025 5:53 PM EDT 01/31/2025 5:57 PM EDT us Nay Hagen MOTOR TRANSPORT INSPECTOR-TERRAZZO TILE MAKER LAB BLOOD ORDERABLES Final Result [facility] [address] [facility] [place] [address], [place] * CBC auto differential (01/31/2025 5:53 PM EDT) WBC 10.1 4 - 11 x10E9/L 01/31/2025 6:08 PM EDT [facility] RBC Count 5.66 4.1 - 5.7 X10E12/L 01/31/2025 6:08 PM EDT [facility] Hemoglobin 16.4 13 - 17 g/dL 01/31/2025 6:08 PM EDT [facility] Hematocrit 46.6 39 - 50 % 01/31/2025 6:08 PM EDT [facility] MCV 82 80 - 100 fL 01/31/2025 6:08 PM EDT [facility] MCH 28.9 27 - 34 pg 01/31/2025 6:08 PM EDT [facility] MCHC 35.1 32 - 36 g/dL 01/31/2025 6:08 PM EDT [facility] RDW 13.6 11.5 - 15 % 01/31/2025 6:08 PM EDT [facility] Platelet Count 290 150 - 450 X10E9/L 01/31/2025 6:08 PM EDT [facility] MPV 9.0 7 - 12 fL 01/31/2025 6:08 PM EDT [facility] Neutrophils % 57.9 % 01/31/2025 6:08 PM EDT [facility] Lymphocytes % 31.8 % 01/31/2025 6:08 PM EDT [facility] Monocytes % 7.9 % 01/31/2025 6:08 PM EDT [facility] Eosinophils % 1.7 % 01/31/2025 6:08 PM EDT [facility] Basophils % 0.7 % 01/31/2025 6:08 PM EDT [facility] Neutrophils Absolute (A) 5.8 1.5 - 6.6 10*3/uL 01/31/2025 6:08 PM EDT [facility] Lymphocytes Absolute 3.2 1.0 - 3.5 10*3/uL 01/31/2025 6:08 PM EDT [facility] Monocytes Absolute 0.8 0.0 - 0.9 10*3/uL 01/31/2025 6:08 PM EDT [facility] Eosinophils Absolute 0.2 0.0 - 0.4 10*3/uL 01/31/2025 6:08 PM EDT [facility] Basophils Absolute 0.1 0.0 - 0.2 10*3/uL 01/31/2025 6:08 PM EDT [facility] Differential Type AUTOMATED DIFFERENTIAL 01/31/2025 6:08 PM EDT [facility] Blood Venous blood / Unknown Venipuncture / Unknown 01/31/2025 5:53 PM EDT 01/31/2025 5:57 PM EDT Nay Hagen MOTOR TRANSPORT INSPECTOR-TERRAZZO TILE MAKER LAB BLOOD ORDERABLES Final Result Performing Organization Address City/[facility] [address]/ZIP Co de Phone Number [address] [place] [address], [place] * APTT (01/31/2025 5:53 PM EDT) APTT 31 26 - 37 sec 01/31/2025 6:21 PM EDT [facility] Blood Venous blood / Unknown Venipuncture / Unknown 01/31/2025 5:53 PM EDT 01/31/2025 5:57 PM EDT Nay Hagen MOTOR TRANSPORT INSPECTOR-TERRAZZO TILE MAKER LAB BLOOD ORDERABLES Final Result [address] [place] [address], [place] * Protime & INR (01/31/2025 5:53 PM EDT) PROTIME 10.5 9.8 - 13.2 sec 01/31/2025 6:21 PM EDT [facility] INR 0.9 0.9 - 1.2 01/31/2025 6:21 PM EDT [facility] Blood Venous blood / Unknown Venipuncture / Unknown 01/31/2025 5:53 PM EDT 01/31/2025 5:57 PM EDT us aNy Hagen MOTOR TRANSPORT INSPECTOR-TERRAZZO TILE MAKER LAB BLOOD ORDERABLES Final Result Performing Organization Address [facility] [address]/[facility] de Phone Number [address] [place] [address], [place] * D-Dimer (01/31/2025 5:53 PM EDT) D DIMER <150 1 - 255 ug/mL 01/31/2025 6:21 PM EDT [facility] Comment:Results <255 ng/mL D DU: The [...] 01/31/2025 5:57 PM EDT us Nay Hagen APRN-TERRAZZO TILE MAKER LAB BLOOD ORDERABLES Final Result Performing Organization Address [facility] [address]/[facility] de Phone Number [address] [place] [address], [place] * B-type natriuretic peptide (01/31/2025 5:53 PM EDT) BNP 9 <=100 pg/mL 01/31/2025 6:37 PM EDT [facility] Blood Venous blood / Unknown Venipuncture / Unknown 01/31/2025 5:53 PM EDT 01/31/2025 5:57 PM EDT us Tee Hieu MOTOR TRANSPORT INSPECTOR-TERRAZZO TILE MAKER LAB BLOOD ORDERABLES Final Result Performing Organization Address City/[facility] [address]/[facility] Co de Phone Number [address] [place] [address], [place] * Magnesium (01/31/2025 5:53 PM EDT) MAGNESIUM 2.2 1.8 - 2.6 mg/dL 01/31/2025 6:25 PM EDT [facility] Blood Venous blood / Unknown Venipuncture / Unknown 01/31/2025 5:53 PM EDT 01/31/2025 5:57 PM EDT us Nay Hagen MOTOR TRANSPORT INSPECTOR-TERRAZZO TILE MAKER LAB BLOOD ORDERABLES Final Result [address] [place] [address], [place] * (ABNORMAL) Comprehensive metabolic panel (01/31/2025 5:53 PM EDT) SODIUM 136 134 - 146 mmol/L 01/31/2025 6:25 PM EDT [facility] POTASSIUM 3.6 3.5 - 5.0 mmol/L 01/31/2025 6:25 PM EDT [facility] CHLORIDE 102 98 - 109 mmol/L 01/31/2025 6:25 PM EDT [facility] CARBON DIOXIDE 25 22 - 32 mmol/L 01/31/2025 6:25 PM EDT [facility] ANION GAP 9 5 - 15 mmol/L 01/31/2025 6:25 PM EDT [facility] BLOOD UREA NITROGEN 10 5 - 23 mg/dL 01/31/2025 6:25 PM EDT [facility] CREATININE 0.87 0.70 - 1.20 mg/dL 01/31/2025 6:25 PM EDT [facility] Comment:METHOD TRACEABLE TO IDMS STANDARD GLUCOSE 105(H) 65 - 99 mg/dL 01/31/2025 6:25 PM EDT [facility] CALCIUM 9.6 8.5 - 10.5 mg/dL 01/31/2025 6:25 PM EDT [facility] TOTAL PROTEIN 8.4(H) 6.0 - 8.0 g/dL 01/31/2025 6:25 PM EDT [facility] ALBUMIN 4.8 3.2 - 5.3 g/dL 01/31/2025 6:25 PM EDT [facility] ALKALINE PHOSPHATASE 69 39 - 130 U/L 01/31/2025 6:25 PM EDT [facility] AST 40 <=41 U/L 01/31/2025 6:25 PM EDT [facility] ALT 74(H) <=40 U/L 01/31/2025 6:25 PM EDT [facility] BILIRUBIN,TOTAL 0.6 0.3 - 1.2 mg/dL 01/31/2025 6:25 PM EDT [facility] EGFR Non-Race Dependent >90 >=60 ml/min/1.7 3sq.m 01/31/2025 6:25 PM EDT [facility] Comment: eGFR not reported due to non-numeric value for Creatinine. Reported eGFR is based on the CKD-EPI 2020 equation that does not use a race coefficient. Blood Venous blood / Unknown Venipuncture / Unknown 01/31/2025 5:53 PM EDT 01/31/2025 5:57 PM EDT Nay CASAREZ LAB BLOOD ORDERABLES Final Result Performing Organization Address City/[facility] [address]/ZIP Co de Phone Number [facility] [address] [place] [address], * ECG 12 lead (01/31/2025 5:25 PM EDT) 01/31/2025 5:25 PM EDT aNy Hagen APRN-TERRAZZO TILE MAKER ECG ORDERABLES Final Resu lt [employer] from Last 3 Months Insurance [employer] Care Teams Senior Revenue Accountant Relationship Specialty Start Date End Date Sylvia Guadarrama APRN-KARLIE [address], [place] [id number] PCP - General Family Medicine 09/02/20
--- OUTSIDE RECORDS SUMMARY | 2025-02-14 08:03 | XMS_ITS | Encounter Summary ---
Author Organization [employer] tem Address [id number] [address] [place] [address] Care Team Providers Care Facilities Maintenance Supervisor Name Role Phone Sylvia Guadarrama APRN-KARLIE [...] on filedocumented in this encounter Care Teams Facilities Maintenance Supervisor Relationship Specialty Start Date End Date Sylvia Guadarrama APRN-CNP [address] [facility], [place] [address] PCP - General Family Medicine 09/02/20 documented as of this encounter
--- OUTSIDE RECORDS SUMMARY | 2025-02-14 08:06 | XMS_ITS | CCD ---
Author Organization [facility] Care Team Providers Care Registered Sales Assistant Name Role Phone GLENYS Stovall Primary Care Provider SYLVIA ONEIL Attending Unavailable SYLVIA ONEIL Primary Care Unavailable SYLVIA ONEIL Admitting Unavailable MARYLOU, DR HARLEEN [place] Attending Unavailmanuel HICKMAN, DR HARLEEN [place] Consulting Unavailmanuel HICKMAN, DR HARLEEN [place] Admitting SYLVIA Arroyo Primary Care Unavailable SYLVIA ONEIL Attending Unavailable SYLVIA ONEIL Primary Care Unavailable DR STEPHON BARROW Consulting Unavailable SYLVIA ONEIL Admitting Unavailable SYLVIA ONEIL Consulting Unavailable Nay Doran Unavailable SYLVIA STOVALL Primary Care Unavailable SHEREE JERONIMO Attending Unavailable Medications Current Medications Medication Drug Class(es) Dates Sig (Normalized) Sig (Original) [id number] 200 actuat albuterol 0.09 mg/actuat metered dose inhaler (1 source) beta2-Adrenergic Agonist Start: 3 take 2 puff(s) by inhalation every four to six hours as needed Albuterol Sulfate HFA 108 (90 Base) MCG/ACT 2 puffs as needed Inhalation every 4-6 hours for 14 days Sep, Active azithromycin 250 mg oral tablet (1 source) Macrolide Antimicrobial Start: 3 Azithromycin 250 MG 2 tablet on the first day, then 1 tablet daily for 4 days Orally Once a day for 5 day(s) Sep, Active dextromethorphan hydrobromide 1.5 mg/ml / pyrilamine maleate 1.5 mg/ml oral solution (1 source) Uncompetitive N-dygktb-F-asparta te Receptor Antagonist, Sigma-1 Agonist Start: 3 take 10 mL by mouth every eight hours [place] DM 7.5-7.5 MG/5ML 10 mL Orally every 8 hours for 5 days Sep, Active methylPREDNISolone 4 mg oral tablet (1 source) Corticosteroid Start: 3 methylPREDNISolone 4 MG as directed Orally for daily dose take half with breakfast, half with dinner for 6 days Sep, Active ofloxacin 3 mg/ml ophthalmic solution (1 source) Quinolone Antimicrobial Start: 3 Ofloxacin 0.3 % 10 drops into both ears Otic Once a day for 7 days Sep, Active pantoprazole 40 mg delayed release oral tablet (1 source) Proton Pump Inhibitor Start: 1 take 1 tablet by mouth once daily Pantoprazole (Protonix) 40 mg tablet,delayed release (DR/EC) Active 40 MG PO Daily 14 December 29, 2020 5:27pm sucralfate 1000 mg oral tablet (1 source) Aluminum Complex Start: 1 take 1 tablet by mouth every six hours Sucralfate (Carafate) 1 gram tablet Active 1 GM PO Q6H 56 December 29, 2020 5:27pm Problems Active Problems Problem Classification Problem Date Documented Da te Episodic/Chronic Abdominal pain (3 sources) Abdominal pain; Translations: [Unspecified abdominal pain] Episodic Cardiac dysrhythmias (1 source) Palpitations; Translations: [Palpitations] Onset: 5 Episodic Esophageal disorders (1 source) Gastroesophageal reflux disease; Translations: [Gastro-esophageal reflux disease without esophagitis] Chronic Nonspecific chest pain (3 sources) Chest pain, unspecified; Translations: [Chest pain] Onset: 5 Episodic Other connective tissue disease (1 source) Other myositis, other site; Translations: [OTHER MYOSITIS OTHER SITE] Onset: 2 Episodic Other ear and sense organ disorders (1 source) Impacted cerumen, bilateral Episodic Other gastrointestinal disorders (1 source) Ulceration of intestine; Translations: [Ulcer of intestine] Episodic Other gastrointestinal disorders (1 source) Alteration in bowel elimination; Translations: [Change in bowel habit] Episodic Other non-traumatic joint disorders (1 source) Pain in right shoulder; Translations: [Pain in right shoulder] Onset: 5 Episodic Other nutritional; endocrine; and metabolic disorders (1 source) Weight loss; Translations: [Abnormal weight loss] Episodic Residual codes; unclassified (1 source) FH: Crohn's disease; Translations: [Family history of other diseases of the digestive system] Episodic Unclassified (2 sources) LOW BACK PAIN, UNSPECIFIED; Translations: [LOW BACK PAIN, UNSPECIFIED] Onset: Past or Other Problems Problem Classification Problem Date Documented Da te Episodic/Chronic Spondylosis; intervertebral disc disorders; other back problems (8 sources) Pain in thoracic spine; Translations: [Dorsalgia, unspecified] Onset: 01-21-2021 Episodic Unclassified (1 source) LOW BACK PAIN, UNSPECIFIED; Translations: [LOW BACK PAIN, UNSPECIFIED] Onset: 11-19-2021 Results Test Name Value Interpretation [facility] Coag (Bld) [Time] 31 s Normal 26-37 [facility] Comment on above: Performed By: #### P TT #### [address] [address] VIR B-TYPE NATRIURETIC PEPTIDEon 01-31-2025 Natriuretic peptide B (Bld) [Mass/Vol] 9 pg/mL Normal <=100 [facility] Comment on above: Performed By: #### B DANCE COACH #### [facility] ([address] [address] VIR CBC WITH AUTO DIFFERENTIALon 01-31-2025 BASOPHILS ABSOLUTE COUNT (10*3/UL) BY AUTOMATED COUNT 0.1 10*3/uL Normal 0.0-0.2 [facility] Comment on above: Performed By: #### C BCA #### [facility] ([address] [address] VIR BASOPHILS RELATIVE PERCENT BY AUTOMATED COUNT 0.7 % Normal [facility] Comment on above: Performed By: #### C BCA #### [facility] ([address] [address] VIR CELLAVISION DIFFERENTIAL TYPE AUTOMATED DIFFERENTIAL Normal [facility] Comment on above: Performed By: #### C BCA #### [facility] ([address] [place] [address] VIR Eosinophils (Bld) [#/Vol] 0.2 10*3/uL Normal 0.0-0.4 [facility] Comment on above: Performed By: #### C BCA #### [facility] ([address] [place] [address] VIR EOSINOPHILS RELATIVE PERCENT BY AUTOMATED COUNT 1.7 % Normal [facility] Comment on above: Performed By: #### C BCA #### [facility] ([address] [address] VIR Erythrocyte distribution width (RBC) [Ratio] 13.6 % Normal 11.5-15 [facility] Comment on above: Performed By: #### C BCA #### [facility] ([address] [address] VIR Hematocrit (Bld) [Volume fraction] 46.6 % Normal 39-50 [facility] Comment on above: Performed By: #### C BCA #### [facility] ([address] [address] VIR Hemoglobin (Bld) [Mass/Vol] 16.4 g/dL Normal 13-17 [facility] Comment on above: Performed By: #### C BCA #### [facility] ([address] [address] VIR LYMPHOCYTES ABSOLUTE COUNT (10*3/UL) BY AUTOMATED COUNT 3.2 10*3/uL Normal 1.0-3.5 [facility] Comment on above: Performed By: #### C BCA #### [facility] ([address] [place] [address] VIR LYMPHOCYTES RELATIVE PERCENT BY AUTOMATED COUNT 31.8 % Normal [facility] Comment on above: Performed By: #### C BCA #### [facility] ([address] [place] [address] VIR MCH (RBC) [Entitic mass] 28.9 pg Normal 27-34 [facility] Comment on above: Performed By: #### C BCA #### [facility] ([address] [place] [address] VIR MCHC (RBC) [Mass/Vol] 35.1 g/dL Normal 32-36 [facility] Comment on above: Performed By: #### C BCA #### [facility] ([address] [place] [address] VIR MCV (RBC) [Entitic vol] 82 fL Normal 80-100 [facility] Comment on above: Performed By: #### C BCA #### [facility] ([address] [address] VIR MONOCYTES ABSOLUTE COUNT (10*3/UL) BY AUTOMATED COUNT 0.8 10*3/uL Normal 0.0-0.9 [facility] Comment on above: Performed By: #### C BCA #### [facility] ([address] [address] VIR MONOCYTES RELATIVE PERCENT BY AUTOMATED COUNT 7.9 % Normal [facility] Comment on above: Performed By: #### C BCA #### [facility] ([address] [place] [address] VIR NEUTROPHILS ABSOLUTE COUNT BY AUTOMATED COUNT 5.8 10*3/uL Normal 1.5-6.6 [facility] Comment on above: Performed By: #### C BCA #### [facility] ([address] [address] VIR NEUTROPHILS RELATIVE PERCENT BY AUTOMATED COUNT 57.9 % Normal [facility] Comment on above: Performed By: #### C BCA #### [facility] ([address] [place] [address] VIR Platelet mean volume (Bld) [Entitic vol] 9.0 fL Normal 7-12 [facility] Comment on above: Performed By: #### C BCA #### [facility] ([facility]) [address] [place] [address] [place] [address] VIR Platelets (Bld) [#/Vol] 290 10*3/uL Normal 150-450 [facility] Comment on above: Performed By: #### C BCA #### [facility] ([address] [place] [address] VIR RBC COUNT 5.66 X10E12/L Normal 4.1-5.7 [facility] Comment on above: Performed By: #### C BCA #### [facility] ([address] [place] [address] VIR WBC (Bld) [#/Vol] 10.1 10*3/uL Normal 4-11 [facility] Comment on above: Performed By: #### C BCA #### [facility] ([address] [place] [address] VIR COMPREHENSIVE METABOLIC PANE Jason 01-31-2025 Albumin [Mass/Vol] 4.8 g/dL Normal 3.2-5.[address] [facility] Comment on above: Performed By: #### C MP #### [facility] ([address] [place] [address] VIR ALP [Catalytic activity/Vol] 69 U/L Normal 39-130 [facility] Comment on above: Performed By: #### C MP #### [facility] ([address] [place] [address] VIR ALT [Catalytic activity/Vol] 74 U/L High <=40 [facility] Comment on above: Performed By: #### C MP #### [facility] ([address] [place] [address] VIR Anion gap [Moles/Vol] 9 mmol/L Normal 5-15 [facility] Comment on above: Performed By: #### C MP #### [facility] ([place] [address] [place] [address] VIR AST [Catalytic activity/Vol] 40 U/L Normal <=41 [facility] Comment on above: Performed By: #### C MP #### [facility] ([place] [address] [place] [address] VIR Bilirubin [Mass/Vol] 0.6 mg/dL Normal 0.3-1.2 [facility] Comment on above: Performed By: #### C MP #### [facility] ([address] [place] [address] VIR Calcium [Mass/Vol] 9.6 mg/dL Normal 8.5-10.[address] [facility] Comment on above: Performed By: #### C MP #### [facility] ([address] [place] [address] VIR Chloride [Moles/Vol] 102 mmol/L Normal 98-109 [facility] Comment on above: Performed By: #### C MP #### [facility] ([place] [address] [place] [address] VIR CO2 [Moles/Vol] 25 mmol/L Normal 22-32 [facility] Comment on above: Performed By: #### C MP #### [facility] ([place] [address] [place] [address] VIR Creatinine [Mass/Vol] 0.87 mg/dL Normal 0.70-1.20 [facility] Comment on above: Result Comment: METH OD TRACEABLE TO IDMS STANDARD Performed By: #### C MP #### [facility] ([place] [address] [place] [address] VIR EGFR (CKD-EPI) NON-RACE DEPENDENT >^90 Normal >=60 [facility] Comment on above: Result Comment: eGFR not reported due to non-numeric value for Creatinine. Reported eGFR is based on the CKD-EPI 2020 equation that does not use a race coefficient. Performed By: #### C MP #### [facility] ([address] [place] [address] VIR Glucose [Mass/Vol] 105 mg/dL High 65-[address] [facility] Comment on above: Performed By: #### C MP #### [facility] ([address] [place] [address] VIR Potassium [Moles/Vol] 3.6 mmol/L Normal 3.5-5.0 [facility] Comment on above: Performed By: #### C MP #### [facility] ([address] [place] [address] VIR Protein [Mass/Vol] 8.4 g/dL High 6.0-8.[address] [facility] Comment on above: Performed By: #### C MP #### [facility] ([address] [place] [address] VIR Sodium [Moles/Vol] 136 mmol/L Normal 134-[address] [facility] Comment on above: Performed By: #### C MP #### [facility] ([address] [place] [address] VIR Urea nitrogen [Mass/Vol] 10 mg/dL Normal 5-23 [facility] Comment on above: Performed By: #### C MP #### [facility] ([address] [place] [address] VIR D-DIMERon 01-31-2025 D DIMER <^150 Normal 1-255 [facility] Comment on above: Result Comment: Resu lts <255 ng/mL DDU: The presensence of a VTE can safely be excluded with a negative D-Dimer result and Wells score. A negative result doesn't exclude the possibility of DIC. The test should be repeated along with other diagnostic tests if the patient's symptoms persist or worsen. Performed By: #### D DMR #### [address] [address] VIR MAGNESIUMon 01-31-2025 Magnesium [Mass/Vol] 2.2 mg/dL Normal 1.8-2.6 [facility] Comment on above: Performed By: #### M G #### [address] [address] VIR PROTIME AND INRon 01-31-2025 INR 0.9 Normal 0.9-1.2 [facility] Comment on above: Performed By: #### P INR #### [address] [address] VIR PT Coag (PPP) [Time] 10.5 s Normal 9.8-13.2 [facility] Comment on above: Performed By: #### P INR #### [address] [address] VIR TROP I, HIGH SENSITIVITY 1 H OURon 01-31-2025 TROPONIN I, HIGH SENSITIVITY <^2 Normal <21 [facility] Comment on above: Performed By: #### P TT #### [address] [address] VIR TROPONIN I, HIGH SENSITIVITY 0 HOURon 01-31-2025 TROPONIN I, HIGH SENSITIVITY <^2 Normal <21 [facility] Comment on above: Performed By: #### T NIHS0 #### [address] [address] VIR XR CHEST 1 VWon 01-31-2025 XR CHEST 1 VW XR CHEST 1 VW HISTORY: A 25-year-old male with a history [...] Jesse Menard MD on 01/31/2025 7:04 PM Normal [facility] XR SHOULDER RT MIN 2 VWSon 0 01-31-2025 XR SHOULDER RT MIN 2 VWS XR SHOULDER RT MIN 2 VWS HISTORY: A 25-year-old male with a history [...] Jesse Menard MD on 01/31/2025 7:03 PM Normal [facility] IBD SGI Diagnosticon 021 Specimen Status Normal . [facility] Comment on above: Result Comment: Ruthann avila lab report sent via fax. Performed at: 7# - [facility] [address] [place] [id number] Manager Outreach: Vin Elise MD, Phone: [phone] PERFORMED BY: [place] [address] PATHOLOGIST INGOT HEADER ROMARIO JACKSON M.D. Performed By: #### L IPASE, CBC, CMP #### [address] XR SCOLIOSIS SERIES 2 TO 3 V IEWSon 01-21-2021 XR SCOLIOSIS SERIES 2 TO 3 VIEWS EXAMINATION: XR SCOLIOSIS SERIES 2 TO 3 VIEWS HISTORY: Pain in thoracic spine COMPARISON: No relevant comparison available. FINDINGS: VERTEBRA: No fracture, listhesis, or abnormal wedging. Very minimal right convex curvature of the upper thoracic spine. Minimal left convex curvature of the lumbar spine. DISK SPACES: No significant narrowing. RISSER GRADE: 5 OTHER: Negative IMPRESSION: 1. Very minimal curvature of the thoracic lumbar spine; well below criteria for scoliosis. 2. No appreciable vertebral body abnormality. 3. Limited evaluation of the disc spaces on frontal projection; no overtly suspicious findings. *Risser grades 0 to 5. Grading is based on the degree of ossification of the iliac apophysis, from grade zero (no ossification) to grade 5 (complete ossification). Electronically authenticated by: STEPHON ABRROW Date: 2021-01-21 16:09 Normal [facility] C-Reactive Proteinon 021 C-Reactive Protein 0.6 mg/dL Normal 0.0-1.0 [facility] Comment on above: Order Comment: Reaso n for Exam Dyspepsia Result Comment: PERF ORMED BY: [place] [address] PATHOLOGIST INGOT HEADER ROMARIO JACKSON M.D. Performed By: #### C BC, CMP, CRP #### [facility] [address] [place] [address] #### CELIAC #### [facility] , Celiacon 01-11-2021 Deamidated Gliadin Abs, IgA 5 Normal 0-19 [facility] Comment on above: Order Comment: Reaso n for Exam Dyspepsia Result Comment: Nega tive 0 - 19 Weak Positive 20 - 30 Moderate to Strong Positive >30 Performed By: #### L IPASE, CBC, CMP #### [address] Deamidated Gliadin Abs, IgG 1 Normal 0-19 [facility] Comment on above: Order Comment: Reaso n for Exam Dyspepsia Result Comment: Nega tive 0 - 19 Weak Positive 20 - 30 Moderate to Strong Positive >30 Performed By: #### L IPASE, CBC, CMP #### [facility] [address] [place] [address] [place] Endomysial Antibody IgA Negative Normal Negative [facility] Comment on above: Order Comment: Reaso n for Exam Dyspepsia Performed By: #### L IPASE, CBC, CMP #### [facility] [address] [place] [address] [place] Immunoglobulin A, Qn, Serum 139 mg/dL Normal 90-386 [facility] Comment on above: Order Comment: Reaso n for Exam Dyspepsia Result Comment: Perf ormed at: - [facility] [id number] Manager Outreach: Dalton Batres PhD, Phone: [phone] PERFORMED BY: [place] [address] PATHOLOGIST INGOT HEADER ROMARIO JACKSON M.D. Performed By: #### L IPASE, CBC, CMP #### [address] T-Transglutaminase (tTG) IgA <2 Normal 0-3 [facility] Comment on above: Order Comment: Reaso n for Exam Dyspepsia Result Comment: Nega tive 0 - 3 Weak Positive 4 - 10 Positive >10 Tissue Transglutaminase (tTG) has been identified as the endomysial antigen. Studies have demonstr- ated that endomysial IgA antibodies have over 99% specificity for gluten sensitive enteropathy. Performed By: #### L IPASE, CBC, CMP #### [facility] [address] [place] [address] T-Transglutaminase (tTG) IgG <2 Normal 0-5 [facility] Comment on above: Order Comment: Reaso n for Exam Dyspepsia Result Comment: Nega tive 0 - 5 Weak Positive 6 - 9 Positive >9 Performed By: #### L IPASE, CBC, CMP #### [facility] [address] [place] [address] Complete Blood Count Auto Di ffon 01-11-2021 Basophils (Bld) [#/Vol] 0.0 10*3/uL Normal 0.0-0.2 [facility] Comment on above: Order Comment: Reaso n for Exam Dyspepsia Result Comment: PERF ORMED BY: [place] [address] PATHOLOGIST INGOT HEADER ROMARIO JACKSON M.D. Performed By: #### C BC, CMP, CRP #### [address] #### CELIAC #### [facility] , Basophils/100 WBC (Bld) 0.5 % Normal . [facility] Comment on above: Order Comment: Reaso n for Exam Dyspepsia Performed By: #### C BC, CMP, CRP #### [address] #### CELIAC #### [facility] , Eosinophils (Bld) [#/Vol] 0.1 10*3/uL Normal 0.0-0.45 [facility] Comment on above: Order Comment: Reaso n for Exam Dyspepsia Performed By: #### C BC, CMP, CRP #### [address] #### CELIAC #### [facility] , Eosinophils/100 WBC (Bld) 1.4 % Normal . [facility] Comment on above: Order Comment: Reaso n for Exam Dyspepsia Performed By: #### C BC, CMP, CRP #### [address] #### CELIAC #### [facility] , Erythrocyte distribution width (RBC) [Ratio] 13.2 % Normal 12.0-14.8 [facility] Comment on above: Order Comment: Reaso n for Exam Dyspepsia Performed By: #### C BC, CMP, CRP #### [place] [address] [place] #### CELIAC #### [facility] , Hematocrit (Bld) [Volume fraction] 43.5 % Normal 38.8-50.0 [facility] Comment on above: Order Comment: Reaso n for Exam Dyspepsia Performed By: #### C BC, CMP, CRP #### [address] [place] [address] [place] #### CELIAC #### [facility] , Hemoglobin (Bld) [Mass/Vol] 15.3 g/dL Normal 13.0-17.0 [facility] Comment on above: Order Comment: Reaso n for Exam Dyspepsia Performed By: #### C BC, CMP, CRP #### [facility] [address] [place] [address] [place] #### CELIAC #### [facility] , Lymphocytes (Bld) [#/Vol] 2.8 10*3/uL Normal 1.00-4.8 [facility] Comment on above: Order Comment: Reaso n for Exam Dyspepsia Performed By: #### C BC, CMP, CRP #### [address] #### CELIAC #### [facility] , Lymphocytes/100 WBC (Bld) 31.9 % Normal . [facility] Comment on above: Order Comment: Reaso n for Exam Dyspepsia Performed By: #### C BC, CMP, CRP #### [facility] [address] [place] [address] #### CELIAC #### [facility] , MCH (RBC) [Entitic mass] 30.0 pg Normal 27.5-35.2 [facility] Comment on above: Order Comment: Reaso n for Exam Dyspepsia Performed By: #### C BC, CMP, CRP #### [place] [address] [place] #### CELIAC #### [facility] , MCV (RBC) [Entitic vol] 85.2 fL Normal 83.5-101 [facility] Comment on above: Order Comment: Reaso n for Exam Dyspepsia Performed By: #### C BC, CMP, CRP #### [place] [address] [place] #### CELIAC #### [facility] , Mean Corpuscular HGB Conc 35.2 g/dL Normal 32.5-35.6 [facility] Comment on above: Order Comment: Reaso n for Exam Dyspepsia Performed By: #### C BC, CMP, CRP #### [place] [address] [place] #### CELIAC #### [facility] , Monocytes (Bld) [#/Vol] 0.7 10*3/uL Normal 0.0-0.8 [facility] Comment on above: Order Comment: Reaso n for Exam Dyspepsia Performed By: #### C BC, CMP, CRP #### [facility] [address] [place] [address] [place] #### CELIAC #### [facility] , Monocytes/100 WBC (Bld) 8.3 % Normal . [facility] Comment on above: Order Comment: Reaso n for Exam Dyspepsia Performed By: #### C BC, CMP, CRP #### [place] [address] [place] #### CELIAC #### [facility] , Neutrophils (Bld) [#/Vol] 5.1 10*3/uL Normal 1.8-7.7 [facility] Comment on above: Order Comment: Reaso n for Exam Dyspepsia Performed By: #### C BC, CMP, CRP #### [facility] [address] [place] [address] [place] #### CELIAC #### [facility] , Neutrophils/100 WBC (Bld) 57.9 % Normal . [facility] Comment on above: Order Comment: Reaso n for Exam Dyspepsia Performed By: #### C BC, CMP, CRP #### [facility] [address] [place] [address] [place] #### CELIAC #### [facility] , Nucleated RBC/100 WBC (Bld) [Ratio] 0.2 % Normal 0-0.5 [facility] Comment on above: Order Comment: Reaso n for Exam Dyspepsia Performed By: #### C BC, CMP, CRP #### [facility] [address] [place] [address] [place] #### CELIAC #### [facility] , Platelet mean volume (Bld) [Entitic vol] 9.2 fL Normal 6.6-10.1 [facility] Comment on above: Order Comment: Reaso n for Exam Dyspepsia Performed By: #### C BC, CMP, CRP #### [address] #### CELIAC #### [facility] , Platelets (Bld) [#/Vol] 228 10*3/uL Normal 150-450 [facility] Comment on above: Order Comment: Reaso n for Exam Dyspepsia Performed By: #### C BC, CMP, CRP #### [address] #### CELIAC #### [facility] , RBC (Bld) [#/Vol] 5.10 10*6/uL Normal 3.90-5.60 [facility] Comment on above: Order Comment: Reaso n for Exam Dyspepsia Performed By: #### C BC, CMP, CRP #### [address] #### CELIAC #### [facility] , WBC (Bld) [#/Vol] 8.7 10*3/uL Normal 4.5-11.0 [facility] Comment on above: Order Comment: Reaso n for Exam Dyspepsia Performed By: #### C BC, CMP, CRP #### [facility] [address] [place] [address] [place] #### CELIAC #### [facility] , Comprehensive Metabolic Pane jason 01-11-2021 Albumin [Mass/Vol] 4.4 g/dL Normal 3.2-5.5 [facility] Comment on above: Order Comment: Reaso n for Exam Dyspepsia Performed By: #### C BC, CMP, CRP #### [facility] [address] [place] [address] [place] #### CELIAC #### [facility] , Albumin/Globulin [Mass ratio] 1.7 {ratio} Normal [facility] Comment on above: Order Comment: Reaso n for Exam Dyspepsia Performed By: #### C BC, CMP, CRP #### [facility] [address] [place] [address] [place] #### CELIAC #### [facility] , ALP [Catalytic activity/Vol] 52 U/L Normal 32-92 [facility] Comment on above: Order Comment: Reaso n for Exam Dyspepsia Performed By: #### C BC, CMP, CRP #### [facility] [address] [place] [address] #### CELIAC #### [facility] , ALT [Catalytic activity/Vol] 20 U/L Normal 10-60 [facility] Comment on above: Order Comment: Reaso n for Exam Dyspepsia Performed By: #### C BC, CMP, CRP #### [facility] [address] [place] [address] [place] #### CELIAC #### [facility] , AST [Catalytic activity/Vol] 16 U/L Normal 10-42 [facility] Comment on above: Order Comment: Reaso n for Exam Dyspepsia Performed By: #### C BC, CMP, CRP #### [facility] [address] [place] [address] [place] #### CELIAC #### [facility] , Bilirubin [Mass/Vol] 0.7 mg/dL Normal 0.3-1.2 [facility] Comment on above: Order Comment: Reaso n for Exam Dyspepsia Performed By: #### C BC, CMP, CRP #### [facility] [address] [place] [address] [place] #### CELIAC #### [facility] , Calcium [Mass/Vol] 9.2 mg/dL Normal 8.2-10.2 [facility] Comment on above: Order Comment: Reaso n for Exam Dyspepsia Performed By: #### C BC, CMP, CRP #### [place] [address] [place] #### CELIAC #### [facility] , Chloride [Moles/Vol] 102 mmol/L Normal 95-114 [facility] Comment on above: Order Comment: Reaso n for Exam Dyspepsia Performed By: #### C BC, CMP, CRP #### [facility] [address] [place] [address] #### CELIAC #### [facility] , CO2 [Moles/Vol] 26.8 mmol/L Normal 22.0-30.0 [facility] Comment on above: Order Comment: Reaso n for Exam Dyspepsia Performed By: #### C BC, CMP, CRP #### [place] [address] [place] #### CELIAC #### [facility] , Creatinine [Mass/Vol] 1.01 mg/dL Normal 0.64-1.27 [facility] Comment on above: Order Comment: Reaso n for Exam Dyspepsia Performed By: #### C BC, CMP, CRP #### [facility] [address] [place] [address] [place] #### CELIAC #### [facility] , Estimated GFR ( Carmen > 60 Normal [facility] Comment on above: Order Comment: Reaso n for Exam Dyspepsia Result Comment: GFR estimated reference range: According to KDOQI guidelines, <60 ml/min/1.73m2 is sufficient to diagnose a patient with chronic kidney disease. Performed By: #### C BC, CMP, CRP #### [facility] [address] [place] [address] [place] #### CELIAC #### [facility] , Estimated GFR (Non- Am > 60 Normal [facility] Comment on above: Order Comment: Reaso n for Exam Dyspepsia Performed By: #### C BC, CMP, CRP #### [facility] [address] [place] [address] [place] #### CELIAC #### [facility] , Globulin (S) [Mass/Vol] 2.6 g/dL Normal [facility] Comment on above: Order Comment: Reaso n for Exam Dyspepsia Performed By: #### C BC, CMP, CRP #### [place] [address] [place] #### CELIAC #### [facility] , Glucose [Mass/Vol] 81 mg/dL Normal 70-100 [facility] Comment on above: Order Comment: Reaso n for Exam Dyspepsia Result Comment: [place] Glucose Reference Range is dependent on time and content of last meal. Glucose of more than 200 mg/dL in a nonstressed, ambulatory subject supports the diagnosis of Diabetes Mellitus. ADA recommended reference range Performed By: #### C BC, CMP, CRP #### [facility] [address] [place] [address] [place] #### CELIAC #### [facility] , Potassium [Moles/Vol] 3.8 mmol/L Normal 3.5-5.1 [facility] Comment on above: Order Comment: Reaso n for Exam Dyspepsia Performed By: #### C BC, CMP, CRP #### [facility] [address] [place] [address] [place] #### CELIAC #### [facility] , Protein [Mass/Vol] 7.0 g/dL Normal 6.1-7.9 [facility] Comment on above: Order Comment: Reaso n for Exam Dyspepsia Performed By: #### C BC, CMP, CRP #### [facility] [address] [place] [address] [place] #### CELIAC #### [facility] , Sodium [Moles/Vol] 139 mmol/L Normal 136-146 [facility] Comment on above: Order Comment: Reaso n for Exam Dyspepsia Performed By: #### C BC, CMP, CRP #### [facility] [address] #### CELIAC #### [facility] , Urea nitrogen [Mass/Vol] 10 mg/dL Normal 9-23 [facility] Comment on above: Order Comment: Reaso n for Exam Dyspepsia Performed By: #### C BC, CMP, CRP #### [facility] [address] #### CELIAC #### [facility] , Jason 01-03-2021 L - -------- Specimen: [id number] Received: 01/03/21 Status: FLORENCIOGrisel Morris Num: [id number] Spec Type: Surgical Subm Dr: Uvaldo Ornelas MD Tissues: A Small Intestine - Biopsy/Polyp (SMALL BOWEL) B Colon Biopsy (COLON ULCER) Procedures: HE Stain/4, Gross/Micro L4/2 -------- Patient Age/Sex Location Account Attending Physician -------- Jose Martin Pedroza /M [id number] Uvaldo Ornelas MD -------- SPEC NUM: [id number] RECD: 01/03/21 STATUS: JAZMÍN MORRIS NUM: [id number] ASHLEY: 01/03/21 [facility] DR: Uvaldo Ornelas MD ENTERED: 01/03/[address] [facility] [address]: MARIIA TYPE: Surgical DEPT: S ORDERED: HE Stain/4, Gross/Micro L4/2 ORDERED: HE Stain/4, Gross/Micro L4/2 Pathological Diagnosis A. Small bowel, biopsy: - Fragments of small bowel mucosa with the mild villi variability and focal erosion. - Focal injury of the tips of the villi and mild intraepithelial lymphocytosis present. See comment. - Negative for dysplasia or malignancy. B. Colon, ulcer, biopsy: - Edematous colon mucosa with erosion snd minimal variability in crypt size and shape. See comment. - Negative for acute and granulomatous inflammation, dysplasia or malignancy. Comment: There are no well developed morphologic features of sprue. Clinical and serologic correlation is recommended. There is no definitive morphologic evidence of inflammatory bowel disease in sections examined. Clinical correlation is recommended. Clinical Information Change in bowels Gross Description A. Received in formalin labeled with the patient's name, number and small bowel rule out celiac and Crohn's are 2 rodriguez-pink tissue fragments, 0.2 cm and 0.3 cm. Entirely submitted in one cassette labeled A1. (SM/NM) -------- Specimen: [id number] Received: 01/03/21 Status: JAZMÍN Morris Num: [id number] Spec Type: Surgical Subm Dr: Uvaldo Ornelas MD Tissues: A Small Intestine - Biopsy/Polyp (SMALL BOWEL) B Colon Biopsy (COLON ULCER) Procedures: HE Stain/4, Gross/Micro L4/2 -------- Patient: Jose Martin Pedroza [id number] (Continued) -------- Specimen: Received: 01/03/21 (Continued) Gross Description (Continued) Signed (signature on file) Catarina Barriga MD 01/04/21 1121 -------- Specimen: Received: 01/03/21 Status: JAZMÍN Morris Num: [id number] Spec Type: Surgical Subm Dr: Uvaldo Ornelas MD Tissues: A Small Intestine - Biopsy/Polyp (SMALL BOWEL) B Colon Biopsy (COLON ULCER) Procedures: HE Stain/4, Gross/Micro L4/2 -------- Patient: Jose Martin Pedroza [id number] (Continued) -------- Specimen: [id number] Received: 01/03/21 (Continued) Gross Description (Continued) B. Received in formalin labeled with the patient's name, number and colon ulcer rule out Crohn's is a 0.4 cm pink-red tissue fragment. Entirely submitted in one cassette labeled B1. (/[place]) Microscopic Description A. Two glass slides with H E stained material have been examined. The microscopic findings support the above pathologic diagnosis. B. Two glass slides with H E stained material have been examined. The microscopic findings support the above pathologic diagnosis. CPT Codes 32954?2 -------- -------- Specimen: [id number] Received: 01/03/21 Status: JAZMÍN Morris Num: [id number] Spec Type: Surgical Subm Dr: Uvaldo Ornelas MD Tissues: A Small Intestine - Biopsy/Polyp (SMALL BOWEL) B Colon Biopsy (COLON ULCER) Procedures: HE Stain/4, Gross/Micro L4/2 -------- Patient: Jose Martin Pedroza [id number] (Continued) -------- Signed (signature on file) Catarina Barriga MD 01/04/21 1121 Normal [facility] SARS-CoV-2 (COVID-19) RNA EMMA+probe Ql (Unsp spec) Negative Normal Negative [facility] Comment on above: Order Comment: Healt hcare Worker?: N Result Comment: Testing for SARS-CoV-2 by RT-PCR This test was developed and its performance characteristics determined by [employer]) and validated at the [facility]. This test has not been FDA cleared or approved. This test has been authorized by FDA under an Emergency Use Authorization (EUA). This test has been validated in accordance with the FDA's Guidance Document (Policy for Diagnostics Testing in Laboratories Certified to Perform High Complexity Testing under CLIA prior to Emergency Use Authorization for Coronavirus Disease-2019 during the Public Health Emergency) issued on September 29, 2019. This test is only authorized for the duration of time the declaration that circumstances exist justifying the authorization of the emergency use of in vitro diagnostic tests for detection of SARS-CoV-2 virus and/or diagnosis of COVID-19 infection under section 564(b)(1) of the Act, 21 U.S.C. 360bbb-3(b)(1), unless the authorization is terminated or revoked sooner. PERFORMED BY: [place] [address] PATHOLOGIST INGOT HEADER ROMARIO JACKSON M.D. Performed By: #### C OVID 19 [facility] #### [address] Albumin [Mass/volume] in Ser um or Plasmaon 12-29-2020 Albumin [Mass/Vol] 4.6 g/dL 3.2-5.5 [facility] Basophils Auto (Bld) [#/Vol] on 12-29-2020 Basophils (Bld) [#/Vol] 0.1 10*3/uL 0.0-0.2 [facility] Basophils/100 WBC Auto (Bld) on 12-29-2020 Basophils/100 WBC (Bld) 0.9 % [facility] Bilirubin Test strip Ql (U)o n 12-29-2020 Bilirubin Ql (U) Negative Negative [facility] Blood hemoglobin measurement (mass/volume)on 12-29-2020 Hemoglobin (Bld) [Mass/Vol] 15.4 g/dL 13.0-17.0 [facility] Blood leukocytes automated c ount (number/volume)on 12-29-2020 WBC (Bld) [#/Vol] 10.2 10*3/uL 4.5-11.0 [facility] Color Auto (U)on 12-29-2020 Color (U) Yellow Yellow [facility] Complete Blood Count Auto Di ffon 12-29-2020 Basophils (Bld) [#/Vol] 0.1 10*3/uL Normal 0.0-0.2 [facility] Comment on above: Result Comment: PERF ORMED BY: [place] [address] PATHOLOGIST INGOT HEADER ROMARIO JACKSON M.D. Performed By: #### L IPASE, CBC, CMP #### [address] Basophils/100 WBC (Bld) 0.9 % Normal . [facility] Comment on above: Performed By: #### L IPASE, CBC, CMP #### [address] Eosinophils (Bld) [#/Vol] 0.0 10*3/uL Normal 0.0-0.45 [facility] Comment on above: Performed By: #### L IPASE, CBC, CMP #### [address] Eosinophils/100 WBC (Bld) 0.2 % Normal . [facility] Comment on above: Performed By: #### L IPASE, CBC, CMP #### [address] Erythrocyte distribution width (RBC) [Ratio] 13.3 % Normal 12.0-14.8 [facility] Comment on above: Performed By: #### L IPASE, CBC, CMP #### [address] Hematocrit (Bld) [Volume fraction] 44.8 % Normal 38.8-50.0 [facility] Comment on above: Performed By: #### L IPASE, CBC, CMP #### [address] Hemoglobin (Bld) [Mass/Vol] 15.4 g/dL Normal 13.0-17.0 [facility] Comment on above: Performed By: #### L IPASE, CBC, CMP #### [address] Lymphocytes (Bld) [#/Vol] 1.3 10*3/uL Normal 1.00-4.8 [facility] Comment on above: Performed By: #### L IPASE, CBC, CMP #### [address] Lymphocytes/100 WBC (Bld) 13.1 % Normal . [facility] Comment on above: Performed By: #### L IPASE, CBC, CMP #### [address] MCH (RBC) [Entitic mass] 29.0 pg Normal 27.5-35.2 [facility] Comment on above: Performed By: #### L IPASE, CBC, CMP #### [address] MCV (RBC) [Entitic vol] 84.7 fL Normal 83.5-101 [facility] Comment on above: Performed By: #### L IPASE, CBC, CMP #### [address] Mean Corpuscular HGB Conc 34.3 g/dL Normal 32.5-35.6 [facility] Comment on above: Performed By: #### L IPASE, CBC, CMP #### [address] Monocytes (Bld) [#/Vol] 0.5 10*3/uL Normal 0.0-0.8 [facility] Comment on above: Performed By: #### L IPASE, CBC, CMP #### [place] [address] [place] Monocytes/100 WBC (Bld) 5.1 % Normal . [facility] Comment on above: Performed By: #### L IPASE, CBC, CMP #### [address] Neutrophils (Bld) [#/Vol] 8.3 10*3/uL High 1.8-7.7 [facility] Comment on above: Performed By: #### L IPASE, CBC, CMP #### [address] Neutrophils/100 WBC (Bld) 80.7 % Normal . [facility] Comment on above: Performed By: #### L IPASE, CBC, CMP #### [address] Nucleated RBC/100 WBC (Bld) [Ratio] 0.1 % Normal 0-0.5 [facility] Comment on above: Performed By: #### L IPASE, CBC, CMP #### [address] Platelet mean volume (Bld) [Entitic vol] 8.3 fL Normal 6.6-10.1 [facility] Comment on above: Performed By: #### L IPASE, CBC, CMP #### [address] Platelets (Bld) [#/Vol] 255 10*3/uL Normal 150-450 [facility] Comment on above: Performed By: #### L IPASE, CBC, CMP #### [address] RBC (Bld) [#/Vol] 5.29 10*6/uL Normal 3.90-5.60 [facility] Comment on above: Performed By: #### L IPASE, CBC, CMP #### [address] WBC (Bld) [#/Vol] 10.2 10*3/uL Normal 4.5-11.0 [facility] Comment on above: Performed By: #### L IPASE, CBC, CMP #### [address] Comprehensive Metabolic Pane jason 12-29-2020 Albumin [Mass/Vol] 4.6 g/dL Normal 3.2-5.5 [facility] Comment on above: Performed By: #### L IPASE, CBC, CMP #### [address] [place] [address] [place] Albumin/Globulin [Mass ratio] 1.6 {ratio} Normal [facility] Comment on above: Performed By: #### L IPASE, CBC, CMP #### [address] ALP [Catalytic activity/Vol] 52 U/L Normal 32-92 [facility] Comment on above: Performed By: #### L IPASE, CBC, CMP #### [address] ALT [Catalytic activity/Vol] 15 U/L Normal 10-60 [facility] Comment on above: Performed By: #### L IPASE, CBC, CMP #### [address] AST [Catalytic activity/Vol] 16 U/L Normal 10-42 [facility] Comment on above: Performed By: #### L IPASE, CBC, CMP #### [address] Bilirubin [Mass/Vol] 0.9 mg/dL Normal 0.3-1.2 [facility] Comment on above: Performed By: #### L IPASE, CBC, CMP #### [address] Calcium [Mass/Vol] 9.2 mg/dL Normal 8.2-10.2 [facility] Comment on above: Performed By: #### L IPASE, CBC, CMP #### [address] Chloride [Moles/Vol] 101 mmol/L Normal 95-114 [facility] Comment on above: Performed By: #### L IPASE, CBC, CMP #### [address] CO2 [Moles/Vol] 27.4 mmol/L Normal 22.0-30.0 [facility] Comment on above: Performed By: #### L IPASE, CBC, CMP #### [address] Creatinine [Mass/Vol] 1.01 mg/dL Normal 0.64-1.27 [facility] Comment on above: Performed By: #### L IPASE, CBC, CMP #### [facility] [address] Creatinine Clr Calc Pharmacy 138.28 [facility] Comment on above: Performed By: #### L IPASE, CBC, CMP #### [facility] [address] Estimated GFR ( Carmen > 60 [facility] Comment on above: Result Comment: GFR estimated reference range: According to KDOQI guidelines, <60 ml/min/1.73m2 is sufficient to diagnose a patient with chronic kidney disease. Performed By: #### L IPASE, CBC, CMP #### [address] Estimated GFR (Non- Am > 60 [facility] Comment on above: Performed By: #### L IPASE, CBC, CMP #### [address] Globulin (S) [Mass/Vol] 2.9 g/dL [facility] Comment on above: Performed By: #### L IPASE, CBC, CMP #### [address] Glucose [Mass/Vol] 100 mg/dL Normal 70-100 [facility] Comment on above: Result Comment: [place] Glucose Reference Range is dependent on time and content of last meal. Glucose of more than 200 mg/dL in a nonstressed, ambulatory subject supports the diagnosis of Diabetes Mellitus. ADA recommended reference range Performed By: #### L IPASE, CBC, CMP #### [address] Potassium [Moles/Vol] 3.7 mmol/L Normal 3.5-5.1 [facility] Comment on above: Performed By: #### L IPASE, CBC, CMP #### [address] Protein [Mass/Vol] 7.5 g/dL Normal 6.1-7.9 [facility] Comment on above: Performed By: #### L IPASE, CBC, CMP #### [facility] [address] Sodium [Moles/Vol] 137 mmol/L Normal 136-146 [facility] Comment on above: Performed By: #### L IPASE, CBC, CMP #### [facility] [address] Urea nitrogen [Mass/Vol] 9 mg/dL Normal 9-23 [facility] Comment on above: Performed By: #### L IPASE, CBC, CMP #### [facility] [address] Creatinine and Glomerular fi ltration rate.predicted panel (S/P/Bld)on 12-29-2020 Creatinine [Mass/Vol] 1.01 mg/dL 0.64-1.27 [facility] Eosinophils Auto (Bld) [#/Vo l]on 12-29-2020 Eosinophils (Bld) [#/Vol] 0.0 10*3/uL 0.0-0.45 [facility] Eosinophils/100 WBC Auto (Bl d)on 12-29-2020 Eosinophils/100 WBC (Bld) 0.2 % [facility] Erythrocyte distribution wid th Auto (RBC) [Ratio]on 12-29-2020 Erythrocyte distribution width (RBC) [Ratio] 13.3 % 12.0-14.8 [facility] Estimated glomerular filtrat ion rate (GFR) non- Americanon 12-29-2020 GFR/1.73 sq M.predicted among non-blacks MDRD (S/P/Bld) [Vol rate/Area] > 60 mL/Min [facility] Globulin Calc (S) [Mass/Vol] on 12-29-2020 Globulin (S) [Mass/Vol] 2.9 g/dL [facility] Hematocrit Auto (Bld) [Volum e fraction]on 12-29-2020 Hematocrit (Bld) [Volume fraction] 44.8 % 38.8-50.0 [facility] Ketones Auto test strip (U) [Mass/Vol]on 12-29-2020 Ketones (U) [Mass/Vol] Trace Negative [facility] Laboratory - Chemistry and C hemistry - challengeon 12-29-2020 Lipase [Catalytic activity/Vol] 22.0 U/L [facility] Laboratory - Hematology and Cell countson 12-29-2020 Nucleated RBC/100 WBC (Bld) [Ratio] 0.1 % 0-0.5 [facility] Lipaseon 12-29-2020 Lipase [Catalytic activity/Vol] 22.0 U/L Normal [facility] Comment on above: Result Comment: PERF ORMED BY: [place] [address] PATHOLOGIST IN[employer] HEADER ROMARIO JACKSON M.D. Performed By: #### L IPASE, CBC, CMP #### [facility] [address] Lymphocytes Auto (Bld) [#/Vo l]on 12-29-2020 Lymphocytes (Bld) [#/Vol] 1.3 10*3/uL 1.00-4.8 [facility] Lymphocytes/100 WBC Auto (Bl d)on 12-29-2020 Lymphocytes/100 WBC (Bld) 13.1 % [facility] MCH Auto (RBC) [Entitic mass ]on 12-29-2020 MCH (RBC) [Entitic mass] 29.0 pg 27.5-35.2 [facility] MCHC Auto (RBC) [Mass/Vol]on 12-29-2020 MCHC (RBC) [Mass/Vol] 34.3 g/dL 32.5-35.6 [facility] MCV Auto (RBC) [Entitic vol] on 12-29-2020 MCV (RBC) [Entitic vol] 84.7 fL 83.5-101 [facility] Monocytes Auto (Bld) [#/Vol] on 12-29-2020 Monocytes (Bld) [#/Vol] 0.5 10*3/uL 0.0-0.8 [facility] Monocytes/100 WBC Auto (Bld) on 12-29-2020 Monocytes/100 WBC (Bld) 5.1 % [facility] Neutrophils Auto (Bld) [#/Vo l]on 12-29-2020 Neutrophils (Bld) [#/Vol] 8.3 10*3/uL 1.8-7.7 [facility] Neutrophils/100 WBC Auto (Bl d)on 12-29-2020 Neutrophils/100 WBC (Bld) 80.7 % [facility] Nitrite Test strip Ql (U)on 12-29-2020 Nitrite Ql (U) Negative Negative [facility] No Panel Informationon 12-29 Estimated GFR () > 60 mL/Min [facility] Comment on above: GFR estimated refere nce range: According to KDOQI guidelines, <60 ml/min/1.73m2 is sufficient to diagnose a patient with chronic kidney disease. Pharmacy Creatinine Clearance (Chem 138.28 [facility] Platelet mean volume Auto (B ld) [Entitic vol]on 12-29-2020 Platelet mean volume (Bld) [Entitic vol] 8.3 fL 6.6-10.1 [facility] Platelets Auto (Bld) [#/Vol] on 12-29-2020 Platelets (Bld) [#/Vol] 255 10*3/uL 150-450 [facility] Protein Auto test strip (U) [Mass/Vol]on 12-29-2020 Protein (U) [Mass/Vol] Negative Negative [facility] Protein [Mass/volume] in Ser um or Plasmaon 12-29-2020 Protein [Mass/Vol] 7.5 g/dL 6.1-7.9 [facility] RBC Auto (Bld) [#/Vol]on RBC (Bld) [#/Vol] 5.29 10*6/uL 3.90-5.60 [facility] Serum or plasma alanine rivers otransferase measurement without P-5'-P (enzymatic activion 12-29-2020 ALT No additional P-5'-P [Catalytic activity/Vol] 15 U/L 10-60 [facility] Serum or plasma albumin/glob ulin mass ratioon 12-29-2020 Albumin/Globulin [Mass ratio] 1.6 {ratio} [facility] Serum or plasma alkaline michael sphatase measurement (enzymatic activity/volume)on 12-29-2020 ALP [Catalytic activity/Vol] 52 U/L 32-92 [facility] Serum or plasma aspartate am inotransferase measurement (enzymatic activity/volume)on 12-29-2020 AST [Catalytic activity/Vol] 16 U/L 10-42 [facility] Serum or plasma calcium j carlos urement (mass/volume)on 12-29-2020 Calcium [Mass/Vol] 9.2 mg/dL 8.2-10.2 [facility] Serum or plasma chloride lucinda surement (moles/volume)on 12-29-2020 Chloride [Moles/Vol] 101 mmol/L 95-114 [facility] Serum or plasma glucose j carlos urement (mass/volume)on 12-29-2020 Glucose [Mass/Vol] 100 mg/dL 70-100 [facility] Comment on above: ADA recommended refe rence rangeRandom Glucose Reference Range is dependent on time and content of last meal. Glucose of more than 200 mg/dL in a nonstressed, ambulatory subject supports the diagnosis of Diabetes Mellitus. Serum or plasma potassium me asurement (moles/volume)on 12-29-2020 Potassium [Moles/Vol] 3.7 mmol/L 3.5-5.1 [facility] Serum or plasma sodium measu rement (moles/volume)on 12-29-2020 Sodium [Moles/Vol] 137 mmol/L 136-146 [facility] Serum or plasma total biliru bin measurement (mass/volume)on 12-29-2020 Bilirubin [Mass/Vol] 0.9 mg/dL 0.3-1.2 [facility] Serum or plasma total carbon dioxide measurement (moles/volume)on 12-29-2020 CO2 [Moles/Vol] 27.4 mmol/L 22.0-30.0 [facility] Serum or plasma urea nitroge n measurement (mass/volume)on 12-29-2020 Urea nitrogen [Mass/Vol] 9 mg/dL 9-23 [facility] Specific gravity Auto test s trip (U) [Rel density]on 12-29-2020 Specific gravity (U) [Rel density] 1.019 1.001-1.030 [facility] Urinalysison 12-29-2020 Appearance (U) Clear Normal Clear [facility] Comment on above: Order Comment: Name Collection Type:: Clean-Voided Midstream Performed By: #### U A #### [facility] [address] [place] [address] [place] Bilirubin,Urine Negative Normal Negative [facility] Comment on above: Order Comment: Name Collection Type:: Clean-Voided Midstream Performed By: #### U A #### [facility] [address] [place] [address] [place] Color (U) Yellow Normal Yellow [facility] Comment on above: Order Comment: Name Collection Type:: Clean-Voided Midstream Performed By: #### U A #### [facility] [address] [place] [address] [place] Glucose Ql (U) Normal Normal Normal [facility] Comment on above: Order Comment: Name Collection Type:: Clean-Voided Midstream Performed By: #### U A #### [facility] [address] [place] [address] [place] Ketones Ql (U) Trace High Negative [facility] Comment on above: Order Comment: Name Collection Type:: Clean-Voided Midstream Performed By: #### U A #### [facility] [address] [place] [address] [place] Leukocyte esterase Test strip Ql (U) Negative Normal Negative [facility] Comment on above: Order Comment: Name Collection Type:: Clean-Voided Midstream Performed By: #### U A #### [facility] [address] [place] [address] [place] Nitrite,Urine Negative Normal Negative [facility] Comment on above: Order Comment: Name Collection Type:: Clean-Voided Midstream Performed By: #### U A #### [facility] [address] [place], [place] [id number] [place] Occult Blood,Urine Negative Normal Negative [facility] Comment on above: Order Comment: Name Collection Type:: Clean-Voided Midstream Result Comment: PERF ORMED BY: [place] [address] PATHOLOGIST INGOT HEADER ROMARIO JACKSON M.D. Performed By: #### U A #### [address] pH (U) 5.5 [pH] Normal 5.0-9.0 [facility] Comment on above: Order Comment: Name Collection Type:: Clean-Voided Midstream Performed By: #### U A #### [address] Protein,Urine Negative Normal Negative [facility] Comment on above: Order Comment: Name Collection Type:: Clean-Voided Midstream Performed By: #### U A #### [address] Specificy [place],Urine 1.019 Normal 1.001-1.030 [facility] Comment on above: Order Comment: Name Collection Type:: Clean-Voided Midstream Performed By: #### U A #### [address] Urobilin[place],Urine Normal Normal Normal [facility] Comment on above: Order Comment: Name Collection Type:: Clean-Voided Midstream Performed By: #### U A #### [address] Urine clarity by refractomet ry automatedon 12-29-2020 Clarity Refractometry automated (U) Clear Clear [facility] Urine glucose measurement by automated test strip (mass/volume)on 12-29-2020 Glucose Auto test strip (U) [Mass/Vol] Normal mg/dL Normal [facility] Urine hemoglobin detection b y automated test stripon 12-29-2020 Hemoglobin Auto test strip Ql (U) Negative Negative [facility] Urine leukocyte esterase det ection by automated test stripon 12-29-2020 Leukocyte esterase Auto test strip Ql (U) Negative Negative [facility] Urobilinogen Auto test strip (U) [Mass/Vol]on 12-29-2020 Urobilinogen (U) [Mass/Vol] Normal mg/dL Normal [facility] XR chest 1V portableon 12-29 XR chest 1V portable [facility] [address] XRay Report Signed Patient: Jose Martin Pedroza MR#: [id number] : 2000 Acct:[id number] Age/Sex: 20 / M ADM Date: 12/29/20 Loc: ER Room: Type: [facility] ER Attending Dr: Ordering Provider: Ori Leyva DO Date of Service: 12/29/20 XR/XR chest 1V portable: Abdominal Pain Copies to: Ori Leyva DO PORTABLE AP ERECT CHEST 1005 hours CLINICAL HISTORY: Shortness of breath and epigastric pain COMPARISON: None The heart is within normal limits. There is no vascular congestion. The lungs, as visualized, are clear. There is no effusion or pneumothorax. The osseous structures are intact. XR/XR chest 1V portable IMPRESSION: NO ACUTE FINDINGS Impression dictated by: Vivian Henley M.D.12/29/2020 5:48 PM Dictation Location: [place] [address] Transcribed By: [facility] 12/29/201747 Dictated By: Vivian Henley MD 12/29/201746 Signed By: 12/29/201747 [facility] pH Auto test strip (U)on pH (U) 5.5 [pH] 5.0-9.0 [facility] Vital Signs Date Time Vital Sign Value Performing Clinician Facility 10-17-2022 16:55-0400 Body height 190.5 cm Nay Doran Other [facility] Other 10-17-2022 16:55-0400 Body mass index (BMI) [Ratio] 31.24 kg/m2 Nay Doran Other [facility] Other 10-17-2022 16:55-0400 Body temperature 98.8 [degF] Nay Doran Other [facility] Other 10-17-2022 16:55-0400 Body weight 113.4 kg Nay Doran Other [facility] Other 10-17-2022 16:55-0400 Respiratory rate 18 /min Nay Doran Other [facility] Other 10-17-2022 16:55-0400 SaO2% (BldA) [Mass fraction] 96 % Nay Doran Other [facility] Other 12-29-2020 17:34-0400 Diastolic blood pressure 70 mm[Hg] DANCE COACH-C Sylvia Chiara Work Phone: [facility] 12-29-2020 17:34-0400 Heart rate 80 /min DANCE COACH[employer]C Sylvia Chiara Work Phone: [facility] 12-29-2020 17:34-0400 Respiratory rate 20 /min DANCE COACH[employer]C Sylvia Chiara Work Phone: [facility] 12-29-2020 17:34-0400 SaO2% (BldA) [Mass fraction] 98 % DANCE COACH-C Sylvia Chiara Work Phone: [facility] 12-29-2020 17:34-0400 Systolic blood pressure 136 mm[Hg] DANCE COACH-C Sylvia Chiara Work Phone: [facility] 12-29-2020 15:32-0400 Body height 190.5 cm DANCE COACH-C Sylvia Chiara Work Phone: [facility] 12-29-2020 15:32-0400 Body mass index (BMI) [Ratio] 25.2 kg/m2 DANCE COACH-C Sylvia Chiara Work Phone: [facility] 12-29-2020 15:32-0400 Body temperature 98.4 [degF] DANCE COACH-C Sylvia Chiara Work Phone: [facility] 12-29-2020 15:32-0400 Body weight 91.35 kg DANCE COACH-C Sylvia Stovall Work Phone: [facility] Encounters Encounter Date Encounter Type Care Provider Facility Start: 01-31-2025 End: 01-31-2025 Emergency department patient visit SYLVIA STOVALL [facility] Start: 10-17-2022 End: 10-17-2022 ambulatory Nay Doran Other [facility] Other Start: 10-17-2022 Office outpatient vi sit 15 minutes Nay Doran [facility] Start: 11-19-2021 End: 11-19-[address] HARLEEN HICKMAN Facility:[facility] Start: 02-18-2021 End: 02-18-2021 ambulatory SYLVIA ONEIL Facility:[facility] Start: 01-21-2021 End: 01-22-2021 ambulatory SYLVIA ONEIL Facility:[facility] Start: 12-29-2020 End: 12-29-2020 Emergency department patient visit DANCE COACHBrandee Stovall Work Phone: [facility] Plan of Treatment Date Care Activity Detail Author Start: 12-29-2020 Plain chest X-ray XR chest 1V portab le [facility] Patient Education Abdominal Pain (ED) [facility] Patient referral [facility] Payers Date Payer Category Payer Unknown [id number] 2000 Unknown [id number] [id number] [id number] 1999 Unknown [id number] [id number] [id number] 1999 Unknown [id number] 2.16.84 [id number] 1999 Unknown [id number] 1960 Self-pay [id number] 1960 Unknown [id number] Unknown Self Pay [id number] Social History Date Type Detail Facility Start: 12-29-2020 Tobacco smoking status NHIS Never smoked tobacco (finding) [facility] Start: 2000 Sex Assigned At Male F [facility] Sex Assigned At Sex Assigned At Bir th [facility] Other Evaluation note 10-17-2022 Note Date & Type Note Facility 10-17-2022 Evaluation note Encounter Date Diagnosis Assessment Notes Sep, Impacted cerumen, bilateral (ICD-10 - H61.23) Ear lavage in office today. Discussed proper ear hygiene. Avoid putting anything inside the ear such as Q-tips, etc. Patient may use OTC wax softeners (Debrox) as directed as needed. We will send in Rx of ofloxacin to use as directed. Follow up with UC or PCP as needed. Immediate eval for ear drainage, pain, loss of hearing, ringing, dizziness, fever, redness, swelling, and pain behind the ear, headache, neck pain, or any other new or concerning symptoms. Patient verbalizes understanding and is agreeable to treatment plan. Sep, Other These medication s were sent on the wrong patient, ERROR [facility] Other Evaluation note Note Date & Type Note Facility Evaluation note No assessment information availa ble [facility] Hospital Discharge instructions Note Date & Type Note Facility Hospital Discharge instructions Additional Instructions Follow up with your primary care doctor Return to the ED if you develop worsening symptoms or concerns [facility] Chief Complaint and Reason for Visit Chief Complaint Abd Pain, SOB Advance Directives No Advanced Directives Records Found Advance Directive Response Recorded Date/ Time Advance Directives No December 29 3:44pm Summary Purpose Family History No Family History Records FoundNo Family History Records FoundNo Family History Records Found Additional Source Comments Goals (unrecognized section and content) Goals may be documented in a n alternate sectionNo Information (unrecognized sect ion and content) No Status Records FoundNo Status Records FoundNo Status Records Found INFORMATION SOURCE (unrecogn ized section and content) DATE CREATED AUTHOR 07/21/2021 [facility] DATE CREATED AUTHOR AUTHOR'S ORGANIZ ATION 11/20/2021 [facility] DATE CREATED AUTHOR AUTHOR'S ORGANIZ ATION 02/03/2025 [facility] REASON FOR VISIT (unrecogniz ed section and content) EARAHCE, FEEL PLUGGED FOR RECORDS PERTAINING TO PATIENTS WHO ARE OR HAVE BEEN ENROLLED IN A CHEMICAL DEPENDENCY/SUBSTANCEABUSE PROGRAM, SOME INFORMATION MAY BE OMITTED. This clinical summary was aggregated from multiple sources. Caution should be exercised in using it in the provision of clinical care. This summary normalizes information from multiple sources, and as a consequence, information in this document may materially change the coding, format and clinical context of patient data. In addition, data may be omitted in some cases. CLINICAL DECISIONS SHOULD BE BASED ON THE PRIMARY CLINICAL RECORDS. [facility] provides no warranty or guarantee of the accuracy or completeness of information in this document.
[2025-02-14 09:27] LABS: Alanine Aminotransferase 73 U/L (16-63); Albumin Globulin Ratio 1.1; Albumin Level 4.3 g/dL (3.4-5.0); Alkaline Phosphatase 67 U/L (46-116); Anion Gap 13.0; Aspartate Amino Transferase 28 U/L (15-37); Blood Urea Nitrogen 12.0 mg/dL (7.0-18.0); Calcium 9.1 mg/dL (8.5-10.1); Carbon Dioxide 26.1 mmol/L (21.0-32.0); Chloride 104 mmol/L (98-107); Estimated GFR (African America >60 (>=60 mL/min/1.73m^2); Estimated GFR (Non-African Ame >60 (>=60 mL/min/1.73m^2); Globulin 3.8 g/dL; Glucose 95 mg/dL (74-106); Potassium 4.1 mmol/L (3.5-5.1); Sodium 139 mmol/L (136-145); Total Protein 8.1 g/dL (6.4-8.2)
== END 2025-02-14 08:01 | disposition home or self-care (01) ==
LOC: LAB 08:00
PROVIDERS: PCP Nurse Practitioner Family; Visit Provider Nurse Practitioner Family
DX: R74.8 Abnormal levels of other serum enzymes (principal)
CPT/HCPCS: 36415; 80053